=== PATIENT | female | born 1930 | race Caucasian/White ===

== ENCOUNTER 2017-01-09 14:38 | Emergency (ER) | payer OTHER ==
[~2017-01-09] VITALS: Ht 144.8 cm; Wt 65.0 kg
[~2017-01-09 14:38] MED LIST: ATEN1TAB73 PO; FURO1TAB93 PO; LEVO112T17 PO; SPIR25 PO; VERA240CR PO
[2017-01-09 14:40] VITALS: BP 172/72; PULSE 86; RESP 15; TEMP 97.8; O2SAT 97
--- NOTE | 2017-01-09 14:50 | PD ---
Physical Exam Date Seen by Provider: Jan 09, 2017 Time Seen by Provider: 14:47 Narrative 86 y/o female here with left wrist injury from trip and fall at home this am. Patient was going out to get paper and tripped. Patient denies other injury, or head or neck injury or pain. No other injury reported. No open wounds. She last ate last night. V/S stable Awaiting bed placement. Data Data Last Documented VS Vital Signs Date Time Temp Pulse Resp B/P Pulse Ox O2 Delivery O2 Flow Rate FiO2 01/09/17 14:40 97.8 86 15 172/72 97 MDM Medical Record Reviewed: Yes Supervised Visit with MARGOT: Yes Condition: Stable Olvin Cartagena Jan 09, 2017 14:50
--- NOTE | 2017-01-09 15:12 | RADRPT ---
EXAM DATE/TIME: 01/09/2017 14:57 [facility] COMPARISON: No previous studies available for comparison. INDICATIONS : Left wrist pain, fell MEDICAL HISTORY : Arthritis. SURGICAL HISTORY : None. ENCOUNTER: Initial ACUITY: 1 day PAIN SCORE: 4/10 LOCATION: Left Wrist FINDINGS: There is osteopenia with a complete fracture of distal radius with impaction of the metaphysis into t he epiphysisand dorsal displacement with slight angulation. Ulnar styloid fracture is also seen. Slig ht degenerative changes present within multiple joints. CONCLUSION: Distal radial fracture and ulnar styloid fracture. Rod Moctezuma MD on January 09, 2017 at 15:10 Board Certified Radiologist. This report was verified electronically.
[2017-01-09] MEDS ORDERED: ATEN25TA PO (15:43)
[2017-01-09] MEDS ORDERED: VERA1TAB17 PO (15:43)
[2017-01-09] MEDS ORDERED: LEVO112T29 PO (15:43)
--- NOTE | 2017-01-09 15:43 | PD ---
HPI Chief Complaint: Fall Time Seen by Provider: 15:43 Travel History International Travel<30 days: No Contact w/Intl Traveler<30days: No Traveled to known affect area: No History of Present Illness HPI 86-year-old female with history of hypertension and hypothyroid disease presents to the emergency department for evaluation of left wrist pain. Patient states that she was walking to get the newspaper from a neighbors when she tripped over her mood and fell landing on an outstretched left upper extremity. She did not strike her head or lose consciousness. She states that her left wrist was hurting her and she cannot pull herself up. She scooted herself into the kitchen to get a broom and then to the living room to get the phone. When she was able to get the phone she contacted a neighbor who came to help her. She states she became impatient with the neighbor who would not pick her up the way that she was requesting so they contacted [facility]. They were able to stay in the patient up in the patient came to emergency department for evaluation. Patient states she has absolutely no pain except for in her wrist and it is a 2 out of 10 at this time. She states she is able to move all of her fingers and denies any alterations in sensation. She has no other symptoms to report this time. PFSH Past Medical History Cancer: No Cardiovascular Problems: No Diabetes: No Glaucoma: No Hepatitis: No Hiatal Hernia: No Hypertension: Yes Thyroid Disease: Yes Tetanus Vaccination: < 5 Years ?: Not Past Surgical History Abdominal Surgery: No Cardiac Surgery: No Ear Surgery: No Endocrine Surgery: No Genitourinary Surgery: No Gynecologic Surgery: No Oral Surgery: No Pacemaker: No Thoracic Surgery: No Social History Alcohol Use: No Tobacco Use: No Substance Use: No Allergies-Medications (Allergen,Severity, Reaction): Coded Allergies: Beta Blockers (Verified Allergy, Severe, 01/09/17) CONFUSION. Uncoded Allergies: NKA (Allergy, Unknown, 05/21/03) NKDA (Allergy, Unknown, 05/21/03) Reported Meds & Prescriptions Reported Meds & Active Scripts Active Percocet (Oxycodone-Acetaminophen) 5-325 mg Tab 0.5-1 Tab PO Q6H PRN Reported Levoxyl (Levothyroxine Sodium) 112 Mcg Tab 112 Mcg PO DAILY Atenolol 25 Mg Tab 25 Mg PO DAILY Verapamil ER 24 HR (Verapamil HCl) 240 Mg Tab 240 Mg PO HS Review of Systems Except as stated in HPI: all other systems reviewed are Neg Physical Exam Narrative GENERAL: Well-nourished elderly female patient, in no acute distress SKIN: Focused skin assessment warm/dry. Ecchymosis on the anterior aspect of the left distal forearm. HEAD: Atraumatic. Normocephalic. EYES: Pupils equal and round. No scleral icterus. No injection or drainage. ENT: No nasal bleeding or discharge. Mucous membranes pink and moist. NECK: Trachea midline. No JVD. CARDIOVASCULAR: Regular rate and rhythm. No murmur appreciated. RESPIRATORY: No accessory muscle use. Clear to auscultation. Breath sounds equal bilaterally. GASTROINTESTINAL: Abdomen soft, non-tender, nondistended. Hepatic and splenic margins not palpable. MUSCULOSKELETAL: No obvious deformities. No clubbing. No cyanosis. There is swelling and tenderness of the left distal forearm and wrist. There is no obvious deformity. The skin is intact. Flexion and extension of the fingers is normal. The fingers are warm and well perfused. Sensation to light touch is intact in the hand. NEUROLOGICAL: Awake and alert. No obvious cranial nerve deficits. Motor grossly within normal limits. Normal speech. PSYCHIATRIC: Appropriate mood and affect; insight and judgment normal. Data Data Last Documented VS Vital Signs Date Time Temp Pulse Resp B/P Pulse Ox O2 Delivery O2 Flow Rate FiO2 01/09/17 14:40 97.8 86 15 172/72 97 Orders Wrist, Complete ([id number]) (01/09/17 14:50) Ice/Cold Pack (01/09/17 14:50) Splint Or Brace Apply/Monitor (01/09/17 15:42) Morphine Inj (Morphine Inj) (01/09/17 15:45) Ondansetron Inj (Zofran Inj) (01/09/17 16:00) Wrist, Limited (Ap&Lat) (01/09/17 ) Fiberglass Sugartong Sp Ad Arm (01/09/17 ) Sling Cradle Arm (01/09/17 ) MDM Medical Decision Making Medical Screen Exam Complete: Yes Emergency Medical Condition: Yes Medical Record Reviewed: Yes Differential Diagnosis Fracture versus sprain versus dislocation versus contusion Narrative Course 86-year-old female presents to the emergency department for evaluation left wrist pain. Patient has no other focal deficits or weakness. She is able to fully flex and extend both hips. There is no shortening or rotation. There is no tenderness to palpation over any of her bony structures except for the left wrist which is mildly swollen with ecchymosis on the anterior aspect. X-ray shows a distal radial fracture and ulnar styloid fracture. Mild angulation and displacement. Patient is placed in a splint to attempt to reduce the angulation is made but unsuccessful. Patient states that she is familiar with Dr. Blank who has repaired her right wrist in the past and needs to get home this evening. I discussed the patient with my attending physician Dr. Liu. Affected Extremity is neurovascularly intact. I explained to the patient that it will likely need surgical intervention sooner than later and to return immediately with any worsening of pain or alterations in sensation. She agrees that she'll contact Dr. Blank's office tomorrow and will return immediately with any acute worsening. He is counseled on care. She is provided pain control as needed. Diagnosis Primary Impression: Left wrist fracture Qualified Code: S62.102A - Left wrist fracture, closed, initial encounter Referrals: Maurice Blank MD Orthopaedic Surgeon Primary Care Physician Patient Instructions: General Instructions, Wrist Fracture in Adults (ED) Additional Instructions: Do not remove your splint Do not get it wet Ice and elevate to reduce pain and swelling Follow-up with a primary care provider Seek orthopedic evaluation. Call tomorrow to schedule an appointment as your fracture may require intervention for proper healing Use caution when taking narcotic pain medication. This may also cause her to be constipated so please use a stool softener if you choose to take it for pain control Return immediately with any acute worsening of symptoms Med/Other Pt SpecificInfo: Prescription(s) given Scripts Oxycodone-Acetaminophen (Percocet)5-325 mg Tab0.5-1 Tab PO Q6H PRN (PAIN GREATER THAN 6) #10 TAB Ref 0 Prov:Alisson Liu MD 01/09/17 Disposition: 01 DISCHARGE HOME Condition: Stable Zora WheelerP Jan 09, 2017 15:43
[2017-01-09] MEDS ORDERED: MORPHINE SULFATE 4 MG/ML INJ IV PUSH ONE (15:45)
[2017-01-09] MEDS ORDERED: ONDANSETRON HCL 4 MG/2 ML VIAL IV PUSH ONE (16:00)
[2017-01-09] MEDS ORDERED: PERC5TAB12 PO (16:30)
--- NOTE | 2017-01-09 16:59 | RADRPT ---
EXAM DATE/TIME: 01/09/2017 16:13 [facility] COMPARISON: WRIST LEFT COMPLETE ([id number]), January 09, 2017, 14:57. INDICATIONS : Post reduction of a left wrist fracture. MEDICAL HISTORY : Arthritis. SURGICAL HISTORY : None. ENCOUNTER: Subsequent ACUITY: 1 day PAIN SCORE: 0/10 LOCATION: Left wrist FINDINGS: Casting material obscures the bony detail and there is no change in distal radial and ulnar fractures . CONCLUSION: Placement of a cast, otherwise not changed. Rod Moctezuma MD on January 09, 2017 at 16:56 Board Certified Radiologist. This report was verified electronically.
== END 2017-01-09 17:00 | disposition home or self-care (01) ==
LOC: NEPE 14:38
DX: S52.502A Unspecified fracture of the lower end of left radius, initial encounter for closed fracture (principal); S52.612A Displaced fracture of left ulna styloid process, initial encounter for closed fracture; W01.0XXA Fall on same level from slipping, tripping and stumbling without subsequent striking against object, initial encounter; Y93.01 Activity, walking, marching and hiking; Y92.009 Unspecified place in unspecified non-institutional (private) residence as the place of occurrence of the external cause
CPT/HCPCS: 29125; 73100; 73110; 96374; 96375; 99284; J2270; J2405

== ENCOUNTER 2017-08-26 10:58 | Inpatient (IN) | payer OTHER, MEDICARE ==
[2017-08-26] VITALS (12 sets, daily range): BP systolic 68–144; BP diastolic 45–66; PULSE 64–86; RESP 16–30; TEMP 98–98.9; O2SAT 94–100
[~2017-08-26] VITALS: Ht 144.8 cm; Wt 67.6 kg
[~2017-08-26 10:58] MED LIST changes: -ATEN1TAB73 PO; +ATEN25TA PO; -FURO1TAB93 PO; -LEVO112T17 PO; +LEVO112T29 PO; +PERC5TAB12 PO; -SPIR25 PO; +VERA1TAB17 PO; -VERA240CR PO
[2017-08-26] MEDS ORDERED: LEVO88TA2 PO (11:16)
[2017-08-26] MEDS ORDERED: ASPI-516 CHEW (11:16)
[2017-08-26] MEDS ORDERED: LISI-515 PO (11:16)
[2017-08-26] MEDS ORDERED: ATEN25TA PO (11:16)
[2017-08-26] MEDS ORDERED: OXYB15TA PO (11:16)
[2017-08-26] MEDS ORDERED: SODIUM CHLORIDE 0.9% FLUSH 10 ML FLUSH IVF PRN (11:30)
[2017-08-26] MEDS ORDERED: SODIUM CHLORID 0.9% 500 ML INJ 500 ML IV ONE ×2 (11:30→12:30)
--- NOTE | 2017-08-26 11:54 | RADRPT ---
EXAM DATE/TIME: 08/26/2017 11:29 [facility] COMPARISON: No previous studies available for comparison. INDICATIONS : Chest pain MEDICAL HISTORY : Hypertension. SURGICAL HISTORY : None. ENCOUNTER: Initial ACUITY: 2 days PAIN SCORE: 2/10 LOCATION: Bilateral chest FINDINGS: A single view of the chest demonstrates the lungs to be symmetrically aerated without evidence of mas s, infiltrate or effusion. The heart size is upper limits of normal.. Osseous structures are intact . CONCLUSION: No acute disease. Bassem Jones MD on August 26, 2017 at 11:52 Board Certified Radiologist. This report was verified electronically.
[2017-08-26] MEDS ORDERED: SODIUM CHLOR 0.9% 1000 ML INJ 1,000 ML IV ONE (12:00)
[2017-08-26 12:04] LABS: AUTOMATED NEUTROPHIL # 8.5 TH/MM3 (1.8-7.7); BASOPHIL % 0.2 % (0.0-2.0); EOSINOPHIL % 0.1 % (0.0-4.0); HEMATOCRIT 39.5 % (35.0-46.0); HEMO FLAGS DIFF FINAL; LYMPH % 10.2 % (9.0-44.0); MEAN CELL VOLUME 93.2 FL (80.0-100.0); MEAN CORPUSCULAR HEMOGLOBIN 30.9 PG (27.0-34.0); MEAN CORPUSCULAR HGB CONC 33.2 % (32.0-36.0); MONO % 6.2 % (0.0-8.0); NEUT % 83.3 % (16.0-70.0); PLATELET COUNT 189 TH/MM3 (150-450); RED BLOOD COUNT 4.23 MIL/MM3 (4.00-5.30); RED CELL DISTRIBUTION WIDTH 13.5 % (11.6-17.2); WHITE BLOOD COUNT 10.2 TH/MM3 (4.0-11.0)
[2017-08-26 12:09] LABS: APTT (PATIENT) 22.5 SEC (24.3-30.1); INTERNATIONAL NORMALIZED RATIO 1.1 RATIO; PROTHROMBIN TIME - PATIENT 11.4 SEC (9.8-11.6)
[2017-08-26 12:21] LABS: ALT (GPT) 48 U/L (10-53); ANION GAP 11 MEQ/L (5-15); AST (GOT) 50 U/L (15-37); BICARBONATE 21.2 MEQ/L (21.0-32.0); BLOOD UREA NITROGEN 24 MG/DL (7-18); CHLORIDE 104 MEQ/L (98-107); GLOMERULAR FILTRATION RATE 34 ML/MIN (>89); POTASSIUM 4.9 MEQ/L (3.5-5.1); SODIUM (NA) 136 MEQ/L (136-145)
[2017-08-26 12:26] LABS: ALKALINE PHOSPHATASE 66 U/L (45-117); TOTAL BILIRUBIN ADULT 0.6 MG/DL (0.2-1.0)
[2017-08-26 12:29] LABS: CREATINE KINASE 97 U/L (26-192)
[2017-08-26] MEDS ORDERED: ASPIRIN 81 MG CHEW TAB CHEW ONE (12:45)
[2017-08-26] MEDS ORDERED: IODIXANOL 320 MG/ML 10 ML VIAL (for Rad CT) IVCONTRAST ONE (12:53)
--- NOTE | 2017-08-26 13:11 | RADRPT ---
EXAM DATE/TIME: 08/26/2017 12:34 [facility] COMPARISON: No previous studies available for comparison. INDICATIONS : Shortness of breath, generalized weakness. IV CONTRAST: 50 cc Visipaque (iodixanol) IV RADIATION DOSE: 7.58 CTDIvol (mGy) MEDICAL HISTORY : Hypertension. SURGICAL HISTORY : None. ENCOUNTER: Initial ACUITY: 1 day PAIN SCALE: 0/10 LOCATION: chest TECHNIQUE: Volumetric scanning of the chest was performed using a pulmonary embolism protocol MIP images were re constructed. Using automated exposure control and adjustment of the mA and/or kV according to patien t size, radiation dose was kept as low as reasonably achievable to obtain optimal diagnostic quality images. DICOM format image data is available electronically for review and comparison. Follow-up recommendations for detected pulmonary nodules are based at a minimum on nodule size and pa tient risk factors according to Fleischner Society Guidelines. FINDINGS: PULMONARY ARTERIES: Extensive bilateral pulmonary emboli are noted within the bilateral upper, bilateral lower and right middle lobe pulmonary artery branches. LUNGS: There is no consolidation or pneumothorax . Tiny noncalcified 7 mm nodule density is noted within the right lower lobe posterior laterally which is indeterminate. Nodular infiltrate and/or scarring is n oted within the posterior aspect of the left lower lobe. PLEURAE: There is no pleural thickening or pleural effusion. MEDIASTINUM: There is good visualization of the great vessels of the middle mediastinum. No evidence of mediastin al or hilar adenopathy/mass. The heart is enlarged. Coronary artery calcium changes are noted. MUSCULOSKELETAL: Degenerative changes and scoliosis of the thoracic spine are noted. MISCELLANEOUS: The visualized upper abdominal organs demonstrate no acute abnormality. CONCLUSION: 1. Extensive bilateral pulmonary emboli throughout all pulmonary artery branches. 2. Cardiomegaly and coronary artery calcifications. 3. 7 mm noncalcified nodule within the right lower lobe which is indeterminate. 4. Nodular infiltrate/scarring within the left posterior lower lobe. 5. Degenerative changes and scoliosis of the thoracic spine. Tyler Chiu MD on August 26, 2017 at 13:03 Board Certified Radiologist. This report was verified electronically.
[2017-08-26] MEDS ORDERED: HEPARIN-D5W 25,000 U/250 ML 250 ML IV PRN ×2 (13:15→17:45)
[2017-08-26] MEDS ORDERED: HEPARIN SODIUM - IV 10,000 UNITS/10 ML VIAL IV PUSH ONE (13:15)
--- NOTE | 2017-08-26 13:58 | PD ---
HPI Chief Complaint: Cardiac Complaint Time Seen by Provider: 11:14 Travel History International Travel<30 days: No Contact w/Intl Traveler<30days: No Traveled to known affect area: No History of Present Illness HPI Patient is an 86-year-old female comes in complaining of shortness of breath. She says this started suddenly yesterday while she was in the store and any sort of exertion causes her to feel very short of breath. She denies ever having any chest pain. She denies leg pain or swelling. She says she has overall been feeling well until yesterday. She denies fever or chills. She denies cough or cold. She says she just feels very tired. PFSH Past Medical History Cancer: No Cardiovascular Problems: No Diabetes: No Glaucoma: No Hepatitis: No Hiatal Hernia: No Hypertension: Yes Thyroid Disease: Yes Menopausal: Yes Past Surgical History Abdominal Surgery: No Cardiac Surgery: No Ear Surgery: No Endocrine Surgery: No Genitourinary Surgery: No Gynecologic Surgery: No Oral Surgery: No Pacemaker: No Thoracic Surgery: No Social History Alcohol Use: No Tobacco Use: No Substance Use: No Allergies-Medications (Allergen,Severity, Reaction): Coded Allergies: acebutolol (Unverified Allergy, Severe, 08/26/17) CONFUSION. atenolol (Unverified Allergy, Severe, 08/26/17) CONFUSION. betaxolol (Unverified Allergy, Severe, 08/26/17) CONFUSION. carvedilol (Unverified Allergy, Severe, 08/26/17) CONFUSION. labetalol (Unverified Allergy, Severe, 08/26/17) CONFUSION. metoprolol (Unverified Allergy, Severe, 08/26/17) CONFUSION. nebivolol (Unverified Allergy, Severe, 08/26/17) CONFUSION. pindolol (Unverified Allergy, Severe, 08/26/17) CONFUSION. propranolol (Unverified Allergy, Severe, 08/26/17) CONFUSION. sotalol (Unverified Allergy, Severe, 08/26/17) CONFUSION. timolol (Unverified Allergy, Severe, 08/26/17) CONFUSION. Uncoded Allergies: NKA (Allergy, Unknown, 05/21/03) NKDA (Allergy, Unknown, 05/21/03) Reported Meds & Prescriptions Reported Meds & Active Scripts Active Reported Aspirin 81 Mg Chew 81 Mg CHEW DAILY Levothyroxine (Levothyroxine Sodium) 88 Mcg Tab 88 Mcg PO DAILY Atenolol 25 Mg Tab 25 Mg PO DAILY Oxybutynin ER 24 HR (Oxybutynin Chloride) 15 Mg Tab 15 Mg PO DAILY Lisinopril 20 Mg Tab 20 Mg PO DAILY Review of Systems Except as stated in HPI: all other systems reviewed are Neg General / Constitutional: No: Fever, Chills Eyes: No: Blurred Vision HENT: No: Headaches Cardiovascular: No: Chest Pain or Discomfort Respiratory: Positive: Shortness of Breath Gastrointestinal: No: Nausea, Vomiting Musculoskeletal: No: Myalgias, Edema Skin: No Rash, No Change in Pigmentation Neurologic: Positive: Weakness, No: Dizziness Physical Exam Narrative GENERAL: Awake and alert, in no acute distress. SKIN: Focused skin assessment warm/dry. HEAD: Atraumatic. Normocephalic. EYES: Pupils equal and round. No scleral icterus. X ocular movements intact. ENT: Mucous membranes pink and moist. NECK: Trachea midline. No JVD. CARDIOVASCULAR: Regular rate and rhythm. No murmur appreciated. RESPIRATORY: No accessory muscle use. Clear to auscultation. Breath sounds equal bilaterally. GASTROINTESTINAL: Abdomen soft, non-tender, nondistended. MUSCULOSKELETAL: No obvious deformities. No clubbing. No cyanosis. No edema. NEUROLOGICAL: Awake and alert. No obvious cranial nerve deficits. Motor grossly within normal limits. Normal speech. PSYCHIATRIC: Appropriate mood and affect; insight and judgment normal. Data Data Last Documented VS Vital Signs Date Time Temp Pulse Resp B/P (MAP) Pulse Ox O2 Delivery O2 Flow Rate FiO2 08/26/17 13:27 67 18 123/60 (81) 97 08/26/17 11:59 Room Air 08/26/17 11:00 98.9 Orders Orders Complete Blood Count With Diff (08/26/17 11:24) Comprehensive Metabolic Panel (08/26/17 11:24) B-Type Natriuretic Peptide (08/26/17 11:24) Act Partial Throm Time (Ptt) (08/26/17 11:24) Prothrombin Time / Inr (Pt) (08/26/17 11:24) Ckmb (Isoenzyme) Profile (08/26/17 11:24) Troponin I (08/26/17 11:24) Urinalysis - C+S If Indicated (08/26/17 11:24) Iv Access Insert/Monitor (08/26/17 11:24) Ecg Monitoring (08/26/17 11:24) Oximetry (08/26/17 11:24) Oxygen Administration (08/26/17 11:24) Chest, Single Ap (08/26/17 11:24) Ct Pulmonary Angiogram (08/26/17 11:24) Sodium Chloride 0.9% Flush (Ns Flush) (08/26/17 11:30) Sodium Chlorid 0.9% 500 Ml Inj (Ns 500 M (08/26/17 11:30) Sodium Chlor 0.9% 1000 Ml Inj (Ns 1000 M (08/26/17 12:00) Sodium Chlorid 0.9% 500 Ml Inj (Ns 500 M (08/26/17 12:30) Aspirin Chew (Aspirin Chew) (08/26/17 12:45) Iodixanol 320 Inj (Rad Ct) (Visipaque 32 (08/26/17 12:53) Heparin Inj (Heparin Inj) (08/26/17 13:15) Heparin-D5w 25,000 U/250 Ml (Heparin-D5w (08/26/17 13:15) Electrocardiogram (08/26/17 11:15) Echo 2d Comp With Doppler (08/26/17 ) Admit Order (Ed Use Only) (08/26/17 ) Labs Laboratory Tests Test 08/26/17 11:42 White Blood Count 10.2 TH/MM3 Red Blood Count 4.23 MIL/MM3 Hemoglobin 13.1 GM/DL Hematocrit 39.5 % Mean Corpuscular Volume 93.2 FL Mean Corpuscular Hemoglobin 30.9 PG Mean Corpuscular Hemoglobin Concent 33.2 % Red Cell Distribution Width 13.5 % Platelet Count 189 TH/MM3 Mean Platelet Volume 8.8 FL Neutrophils (%) (Auto) 83.3 % Lymphocytes (%) (Auto) 10.2 % Monocytes (%) (Auto) 6.2 % Eosinophils (%) (Auto) 0.1 % Basophils (%) (Auto) 0.2 % Neutrophils # (Auto) 8.5 TH/MM3 Lymphocytes # (Auto) 1.0 TH/MM3 Monocytes # (Auto) 0.6 TH/MM3 Eosinophils # (Auto) 0.0 TH/MM3 Basophils # (Auto) 0.0 TH/MM3 CBC Comment DIFF FINAL Differential Comment Prothrombin Time 11.4 SEC Prothromb Time International Ratio 1.1 RATIO Activated Partial Thromboplast Time 22.5 SEC Blood Urea Nitrogen 24 MG/DL Creatinine 1.47 MG/DL Random Glucose 309 MG/DL Total Protein 7.2 GM/DL Albumin 3.5 GM/DL Calcium Level 10.9 MG/DL Alkaline Phosphatase 66 U/L Aspartate Amino Transf (AST/SGOT) 50 U/L Alanine Aminotransferase (ALT/SGPT) 48 U/L Total Bilirubin 0.6 MG/DL Sodium Level 136 MEQ/L Potassium Level 4.9 MEQ/L Chloride Level 104 MEQ/L Carbon Dioxide Level 21.2 MEQ/L Anion Gap 11 MEQ/L Estimat Glomerular Filtration Rate 34 ML/MIN Total Creatine Kinase 97 U/L Troponin I 1.64 NG/ML B-Type Natriuretic Peptide 441 PG/ML MDM Medical Decision Making Medical Screen Exam Complete: Yes Emergency Medical Condition: Yes Medical Record Reviewed: Yes Interpretation(s) ECG shows normal sinus rhythm at 75, no ST elevation or depression. Differential Diagnosis PE versus ACS versus pneumonia versus CHF Narrative Course Patient is an 86-year-old female comes in complaining of shortness of breath. Exam shows no abnormalities. Patient is hypotensive in the ED. She is given 2 L of normal saline. Rectal exam performed shows no evidence of bleeding. Patient taken for CTA to rule out PE. Labs show an elevated troponin to 1.64. CTA shows heavy clot burden in her pulmonary arteries. Patient was given aspirin, given heparin. Patient admitted to the ICU for further management. Critical Care Narrative Aggregate critical care time was 35 minutes. Time to perform other separately billable procedures was not included in the critical care time. My time did not include minutes spent treating any other patients simultaneously or on activities that did not directly contribute to the patient's treatment. The services I provided to this patient were to treat and/or prevent clinically significant deterioration that could result in: Serious illness or I provided critical care services requiring my management, as noted below: Chart data review, documentation time, medication orders and management, vital sign assessments/reviewing monitor data, ordering and reviewing lab tests, ordering and interpreting/reviewing x-rays and diagnostic studies, care of the patient and discussion of the patient with the admitting physicians. HemaPrompt Point of Care Internal Pos. & Neg. Controls: Passed Fecal Specimen Occult Blood: Negative Diagnosis Primary Impression: Acute massive pulmonary embolism Additional Impression: Hypotension Qualified Codes: I95.89 - Other hypotension Admitting Information Admitting Physician Requests: Admit Alisson Liu MD Aug 26, 2017 13:58
[2017-08-26] MEDS ORDERED: ALTEPLASE INJ 100 MG in WATER STERILE FOR INJ 100 ML IV ONE (14:30)
[2017-08-26] MEDS ORDERED: MISCELLANEOUS NURSING INFORMATION OTHER PRN (14:30)
[2017-08-26] MEDS: SODIUM CHLOR 0.9% 1000 ML INJ 1,000 ML IV SCH (14:31)
--- NOTE | 2017-08-26 14:36 | HHI.HP ---
[facility] Service Critical Care Medicine Primary Care Physician Carlos Pokl MD Admission Diagnosis PE, hypotension Diagnosis: (1) Acute massive pulmonary embolism Diagnosis: Principal (2) Urinary incontinence Diagnosis: Secondary (3) Hypertension Diagnosis: Secondary (4) Hypothyroidism Diagnosis: Secondary (5) Elevated troponin Diagnosis: Principal (6) Acute kidney injury Diagnosis: Principal (7) Hyperglycemia Diagnosis: Principal (8) Hypotension Diagnosis: Principal (9) History of TIA (transient ischemic attack) Diagnosis: Principal (10) Diabetes mellitus Diagnosis: Secondary Chief Complaint: Shortness of breath/generalized weakness Travel History International Travel<30 Days: No Contact w/Intl Traveler <30 Da: No Traveled to Known Affected Are: No History of Present Illness This is a 86-year-old female. Date of admission 08/26/2017. Past medical history includes hypertension, diet-controlled diabetes, hypothyroidism and urinary incontinence. This had bilateral wrist surgeries in the past. She presents to [facility] with several-day history increasing shortness of breath. Denies any chest pain or pressure with this. Positive for dyspnea exertion. Denies orthopnea. Denies any recent travel. She states she has a fairly active lifestyle and takes care of stray cats CT pulmonary revealed bilateral pulmonary embolism. Patient was released from heparin drip. Patient can hypotensive. Bedside to occur revealed right ventricular strain with bowing D interseptum. Discussed patient benefits risk of alteplase infusion with ongoing hypotension increasing dyspnea. This includes acute active internal bleeding/acute intracranial hemorrhage etc.. Will check CT brain prior to initiation of alteplase. She agreed knowing benefits and risks of procedure Dr. Jacobo as seen the patient from cardiology standpoint. EKG revealedno specific ST-T changes. Troponin was elevated 1.6. official echocardiogram pending. Bedside echo revealed RV straining Review of Systems Constitutional: COMPLAINS OF: Fatigue, Weight loss, DENIES: Fever, Weight gain Endocrine: DENIES: Heat/cold intolerance, Polydipsia Eyes: DENIES: Blurred vision, Diplopia Ears, nose, mouth, throat: DENIES: Tinnitus, Hearing loss Respiratory: COMPLAINS OF: Shortness of breath, DENIES: Apneas, Hemoptysis, Sputum production Cardiovascular: DENIES: Chest pain Gastrointestinal: DENIES: Abdominal pain, Nausea, Vomiting Genitourinary: COMPLAINS OF: Urinary frequency, Urinary incontinence Musculoskeletal: DENIES: Joint pain Integumentary: DENIES: Abnormal pigmentation Hematologic/lymphatic: DENIES: Bruising Immunologic/allergic: DENIES: Eczema Neurologic: DENIES: Abnormal gait Psychiatric: COMPLAINS OF: Anxiety, DENIES: Confusion, Depression Past Family Social History Allergies: Coded Allergies: acebutolol (Unverified Allergy, Severe, 08/26/17) CONFUSION. atenolol (Unverified Allergy, Severe, 08/26/17) CONFUSION. betaxolol (Unverified Allergy, Severe, 08/26/17) CONFUSION. carvedilol (Unverified Allergy, Severe, 08/26/17) CONFUSION. labetalol (Unverified Allergy, Severe, 08/26/17) CONFUSION. metoprolol (Unverified Allergy, Severe, 08/26/17) CONFUSION. nebivolol (Unverified Allergy, Severe, 08/26/17) CONFUSION. pindolol (Unverified Allergy, Severe, 08/26/17) CONFUSION. propranolol (Unverified Allergy, Severe, 08/26/17) CONFUSION. sotalol (Unverified Allergy, Severe, 08/26/17) CONFUSION. timolol (Unverified Allergy, Severe, 08/26/17) CONFUSION. Uncoded Allergies: NKA (Allergy, Unknown, 05/21/03) NKDA (Allergy, Unknown, 05/21/03) Past Medical History Hypertension Hypothyroidism Urinary incontinence Diet-controlled diabetes History of TIA in Past Surgical History Bilateral wrists repair [place] teeth extraction Cataract Reported Medications Aspirin 81 Mg Chew 81 Mg CHEW DAILY Levothyroxine (Levothyroxine Sodium) 88 Mcg Tab 88 Mcg PO DAILY Atenolol 25 Mg Tab 25 Mg PO DAILY Oxybutynin ER 24 HR (Oxybutynin Chloride) 15 Mg Tab 15 Mg PO DAILY Lisinopril 20 Mg Tab 20 Mg PO DAILY Active Ordered Medications Reviewed in EMR Family History Patient is placed in foster care at age 10. Does not know family history. Social History Quit tobacco in 1979. Approximately one half pack per day 30 years. Denies alcohol or illicit drug use Physical Exam Vital Signs Vital Signs Date Time Temp Pulse Resp B/P (MAP) Pulse Ox O2 Delivery O2 Flow Rate FiO2 08/26/17 14:16 69 125/63 (83) 08/26/17 13:27 67 18 123/60 (81) 97 08/26/17 11:59 65 25 68/46 (53) 94 Room Air 69/45 (53) 08/26/17 11:49 98 Room Air 08/26/17 11:49 (77) Room Air 08/26/17 11:11 74 20 96 Room Air 08/26/17 11:00 98.9 86 16 113/59 (77) 95 Physical Exam GENERAL: This is a 86-year-old female resting in bed in mild Mr. distress SKIN: Warm and dry. HEAD: Atraumatic. Normocephalic. EYES: Pupils equal and round about 2 mm bilaterally and reactive. No scleral icterus. No injection or drainage. ENT: No nasal bleeding or discharge. Mucous membranes pink and moist. NECK: Trachea midline. No JVD. CARDIOVASCULAR: Regular rate and rhythm. S1, S2 no S4 without murmur RESPIRATORY: No accessory muscle use. Clear to auscultation. Breath sounds equal bilaterally. GASTROINTESTINAL: Abdomen soft, non-tender, nondistended. Hepatic and splenic margins not palpable. MUSCULOSKELETAL: Extremities without significant peripheral edema. No obvious deformities. NEUROLOGICAL: Awake and alert. No obvious cranial nerve deficits. Motor grossly within normal limits. Five out of 5 muscle strength in the arms and legs. Normal speech. PSYCHIATRIC: Appropriate mood and affect; insight and judgment normal. Laboratory Laboratory Tests Test 08/26/17 11:42 White Blood Count 10.2 Red Blood Count 4.23 Hemoglobin 13.1 Hematocrit 39.5 Mean Corpuscular Volume 93.2 Mean Corpuscular Hemoglobin 30.9 Mean Corpuscular Hemoglobin Concent 33.2 Red Cell Distribution Width 13.5 Platelet Count 189 Mean Platelet Volume 8.8 Neutrophils (%) (Auto) 83.3 Lymphocytes (%) (Auto) 10.2 Monocytes (%) (Auto) 6.2 Eosinophils (%) (Auto) 0.1 Basophils (%) (Auto) 0.2 Neutrophils # (Auto) 8.5 Lymphocytes # (Auto) 1.0 Monocytes # (Auto) 0.6 Eosinophils # (Auto) 0.0 Basophils # (Auto) 0.0 CBC Comment DIFF FINAL Differential Comment Prothrombin Time 11.4 Prothromb Time International Ratio 1.1 Activated Partial Thromboplast Time 22.5 Blood Urea Nitrogen 24 Creatinine 1.47 Random Glucose 309 Total Protein 7.2 Albumin 3.5 Calcium Level 10.9 Alkaline Phosphatase 66 Aspartate Amino Transf (AST/SGOT) 50 Alanine Aminotransferase (ALT/SGPT) 48 Total Bilirubin 0.6 Sodium Level 136 Potassium Level 4.9 Chloride Level 104 Carbon Dioxide Level 21.2 Anion Gap 11 Estimat Glomerular Filtration Rate 34 Total Creatine Kinase 97 Troponin I 1.64 B-Type Natriuretic Peptide 441 Result Diagram: 08/26/17 1142 08/26/17 1142 Imaging Last Impressions Chest X-Ray 08/26/17 1124 Signed Impressions: Service Date/Time: Saturday, August 26, 2017 11:29 - CONCLUSION: No acute disease. Bassem Jones MD CT Angiography 08/26/17 1124 Signed Impressions: Service Date/Time: Saturday, August 26, 2017 12:34 - CONCLUSION: 1. Extensive bilateral pulmonary emboli throughout all pulmonary artery branches. 2. Cardiomegaly and coronary artery calcifications. 3. 7 mm noncalcified nodule within the right lower lobe which is indeterminate. 4. Nodular infiltrate/scarring within the left posterior lower lobe. 5. Degenerative changes and scoliosis of the thoracic spine. Tyler Chiu MD Septic Shock Reassessment Septic shock perfusion: reassessment completed Caprini VTE Risk Assessment Caprini VTE Risk Assessment: Mod/High Risk (score >= 2) Caprini Risk Assessment Model Point Value = 1 Point Value = 2 Point Value = 3 Point Value = 5 Age 41-60 Minor surgery BMI > 25 kg/m2 Swollen legs Varicose veins or History of unexplained or recurrent spontaneous Oral contraceptives or hormone replacement Sepsis (< 1 month) Serious lung disease, including pneumonia (< 1 month) Abnormal pulmonary function Acute myocardial infarction Congestive heart failure (< 1 month) History of inflammatory bowel disease Medical patient at bed rest Age 61-74 Arthroscopic surgery Major open surgery (> 45 min) Laparoscopic surgery (> 45 min) Malignancy Confined to bed (> 72 hours) Immobilizing plaster cast Central venous access Age >= 75 History of VTE Family history of VTE Factor V Leiden Prothrombin [id number] Lupus anticoagulant Anticardiolipin antibodies Elevated serum homocysteine Heparin-induced thrombocytopenia Other congenital or acquired thrombophilia Stroke (< 1 month) Elective arthroplasty Hip, pelvis, or leg fracture Acute spinal cord injury (< 1 month) Prophylaxis Regimen Total Risk Factor Score Risk Level Prophylaxis Regimen 0-1 Low Early ambulation 2 Moderate Order ONE of the following: *Sequential Compression Device (SCD) *Heparin 5000 units SQ BID 3-4 Higher Order ONE of the following medications: *Heparin 5000 units SQ TID *Enoxaparin/Lovenox 40 mg SQ daily (WT < 150 kg, CrCl > 30 mL/min) *Enoxaparin/Lovenox 30 mg SQ daily (WT < 150 kg, CrCl > 10-29 mL/min) *Enoxaparin/Lovenox 30 mg SQ BID (WT < 150 kg, CrCl > 30 mL/min) AND/OR *Sequential Compression Device (SCD) 5 or more Highest Order ONE of the following medications: *Heparin 5000 units SQ TID (Preferred with Epidurals) *Enoxaparin/Lovenox 40 mg SQ daily (WT < 150 kg, CrCl > 30 mL/min) *Enoxaparin/Lovenox 30 mg SQ daily (WT < 150 kg, CrCl > 10-29 mL/min) *Enoxaparin/Lovenox 30 mg SQ BID (WT < 150 kg, CrCl > 30 mL/min) AND *Sequential Compression Device (SCD) Assessment and Plan Assessment and Plan Neuro/Psych: History of TIA 1990s Acetaminophen as needed for fever Hydrocodone/acetaminophen and morphine sulfate for pain management CT brain prior to initiation of alteplase CV: Elevated troponin Obstructive shock secondary to pulmonary embolism History of hypertension EKG revealed no significant ST-T changes. Cycle troponins every [address] Jacobo - cardiology is evaluating Holding daily medication atenolol 25 mg daily lisinopril 20 mg daily light of hypotension Holding aspirin 81 mg daily after alteplase Bedside echo revealed intraseptal D bowling and RV strain. Formal 2-D echocardiogram pending Resp: Massive pulmonary embolism/acute CT pulmonary revealed bilateral pulmonary embolism Patient is currently motion of breath episode of hypotension transiently improved with IV fluids Discuss with patient's benefit versus risk of alteplase infusion. Risks include bleeding both internal and intracerebral hemorrhage. Greater than 6% chance of bleeding with initiation of alteplase. She is aware the risks and wishes to proceed. GI: Patient is currently nothing by mouth IV pantoprazole for GI prophylaxis Docusate sodium/senna 1 tablet twice a day for bowel regimen : Urinary incontinence Continue oxybutynin 50 mill grams daily Rogers catheter for accurate I's and O's in a critically ill patient Endo: Diet-controlled diabetes mellitus Accu-Cheks before meals/at bedtime with Novulin R to maintain euglycemia/low regimen Check TSH. Continue Levoxyl 88 g daily Renal: Acute kidney injury Creatinine is currently 1.47. Check urine electrolytes and eosinophils Currently on normal saline at 84 cc an hour Monitor urine output Accurate I's and O's Heme: CBC within normal limits Monitor daily. Coags within normal limits as well ID: Monitor for infection MSK: PT evaluate and treat. Currently on bedrest status post alteplase FEN: Replace electrolytes is clinically indicated Access - Utilize peripheral IV. Central line if indicated Prophylaxis - GI - pantoprazole - DVT - SCD/pharmacological prophylaxis held status post alteplase Critical Care: The total critical care time was 35 minutes. Time to perform other separately billable procedures was not included in the critical care time. Code Status Full code Discussed Condition With Dr. Hameed/ED physician. Patient. Care plan discussed and all questions answered. Problem Qualifiers (1) Urinary incontinence: Qualified Codes: R32 - Unspecified urinary incontinence (2) Hypertension: Qualified Codes: I10 - Essential (primary) hypertension (3) Hypothyroidism: Qualified Codes: E03.9 - Hypothyroidism, unspecified (4) Hypotension: Qualified Codes: I95.89 - Other hypotension (5) Diabetes mellitus: Qualified Codes: E11.8 - Type 2 diabetes mellitus with unspecified complications Michael Mancuso MD Aug 26, 2017 14:36
[2017-08-26] MEDS ORDERED: RESP: ALBUTEROL 2.5 MG/3 ML NEB (PRN) INH (14:45)
[2017-08-26] MEDS ORDERED: CHLORHEXIDINE GLUCONATE 2 % 1 PACK (2 CLOTHS) TOP PRN (14:45)
[2017-08-26] MEDS ORDERED: BISACODYL 10 MG SUPP RECTAL PRN (14:45)
[2017-08-26] MEDS ORDERED: MORPHINE SULFATE 4 MG/ML INJ IV PUSH PRN ×2 (14:45→16:30)
[2017-08-26] MEDS ORDERED: MISCELLANEOUS NURSING INFORMATION XX SCH (14:45)
[2017-08-26] MEDS ORDERED: MAGNESIUM HYDROXIDE SUSP 30 ML CUP PO PRN (14:45)
[2017-08-26] MEDS ORDERED: ACETAMINOPHEN 325 MG TAB PO PRN (14:45)
[2017-08-26] MEDS ORDERED: ACETAMINOPHEN/HYDROcodone 325 MG/5 MG TAB PO PRN (14:45)
[2017-08-26] MEDS ORDERED: SENNOSIDES 8.6 MG TAB PO PRN (14:45)
[2017-08-26] MEDS ORDERED: ONDANSETRON HCL 4 MG/2 ML VIAL IV PUSH PRN (14:45)
[2017-08-26] MEDS ORDERED: LACTULOSE SYRUP 20 GM/30 ML CUP PO PRN (14:45)
--- NOTE | 2017-08-26 14:52 | MB ---
cc: CULLEN STOVALL M.D. DATE OF CONSULTATION 08/26/2017 REASON FOR CONSULTATION Abnormal troponin level. HISTORY OF PRESENT ILLNESS The patient is an 86-year-old white female with a history of hypertension, diet-controlled diabetes, transient ischemic attack in the , who presented to the hospital mainly with complaints of shortness of breath. She is vague as to the duration of her symptoms but states they have been going on for "a long time." Troponin level was checked here in the hospital and found to be abnormal. The patient denies any chest pains, dizziness, syncope, near-syncope. For at least the last few months she has had mild left pedal edema. Rarely she experiences brief fluttering palpitations. She denies paroxysmal nocturnal dyspnea, orthopnea, fevers, cough, hemoptysis. PAST MEDICAL HISTORY 1. Hypertension. 2. Diet-controlled diabetes. 3. Transient ischemic attack in the . 4. Hypothyroidism. PAST SURGICAL HISTORY Cataract surgery. MEDICATIONS Cardiac medications at home: 1. Aspirin 81 mg q. daily. 2. Tenormin 25 mg q. daily. 3. Lisinopril 20 mg q. daily. ALLERGIES BETA BLOCKERS. FAMILY HISTORY Noncontributory. SOCIAL HISTORY The patient denies alcohol abuse. She quit smoking in 1979. REVIEW OF SYSTEMS As in the history of present illness, otherwise negative or noncontributory. She also currently denies headache, visual changes, abdominal pain, melena, dyspepsia, bright red blood per rectum. PHYSICAL EXAMINATION VITAL SIGNS: On physical examination her blood pressure is 123/60 with a pulse of 67, respirations 18. GENERAL: In general she is a well-developed, well-nourished white female in no acute distress. HEENT/NECK: Jugular venous pressure is normal. Carotid pulses are 2+ bilaterally and without bruits. CHEST: Examination of the chest reveals clear lung kay. CARDIAC: On cardiac examination she has a regular rhythm and rate without S3, S4 or murmur. ABDOMEN: On abdominal examination she has a soft, nontender abdomen. Bowel sounds are present. There is no definite hepatosplenomegaly. EXTREMITIES: Examination of the extremities reveals no clubbing or cyanosis. There is trace to 1+ left pretibial edema. LABORATORY Laboratory data includes troponin 1.64, AST 50, ALT 48, BUN 24, creatinine 1.47, potassium 4.9, WBC 10.2, hemoglobin 13.1, platelets 189, INR 1.1. IMAGING Chest x-ray shows no acute disease. EKG I am unable to locate the EKG; reportedly it shows no acute ST-segment or T-wave changes. IMPRESSION Bilateral extensive pulmonary emboli, transient hypotension in this 86-year-old white female with a history of hypertension, diet-controlled diabetes, transient ischemic attack and hypothyroidism. I have been asked to see the patient for an abnormal troponin level. Overall I doubt the abnormal troponin level is due to acute coronary syndrome. It may be due to the acute pulmonary embolism. With administration of intravenous fluids she is now normotensive. Reportedly EKG shows no acute ST-segment or T-wave changes. She denies any chest pain symptoms. RECOMMENDATIONS 1. Anticoagulation therapy for her pulmonary emboli. 2. Await her 2-D echo. 3. Will follow-up as needed for any abnormalities seen on echocardiography. MD CHEL Dickson/ABEBE /1:54 PM /2:25 PM [id number]
[2017-08-26] MEDS ORDERED: GLUCAGON 1 MG/ML VIAL OTHER PRN (15:00)
[2017-08-26] MEDS ORDERED: DEXTROSE 50% IN WATER 50 ML VIAL(D50) IV PUSH PRN (15:00)
--- NOTE | 2017-08-26 15:24 | RADRPT ---
EXAM DATE/TIME: 08/26/2017 15:09 [facility] COMPARISON: No previous studies available for comparison. INDICATIONS : Generalized weakness. RADIATION DOSE: 30.32 CTDIvol (mGy) MEDICAL HISTORY : Hypertension. SURGICAL HISTORY : None. ENCOUNTER: Initial ACUITY: 1 day PAIN SCALE: 0/10 LOCATION: cranial TECHNIQUE: Multiple contiguous axial images were obtained of the head. Using automated exposure control and adj ustment of the mA and/or kV according to patient size, radiation dose was kept as low as reasonably a chievable to obtain optimal diagnostic quality images. DICOM format image data is available electro nically for review and comparison. FINDINGS: CEREBRUM: The ventricles are normal for age. Bilateral cortical atrophy and chronic white matter changes. No e vidence of midline shift, mass lesion, hemorrhage or acute infarction. No extra-axial fluid collecti ons are seen. POSTERIOR FOSSA: The cerebellum and brainstem are intact. The 4th ventricle is midline. The cerebellopontine angle i s unremarkable. EXTRACRANIAL: The visualized portion of the orbits is intact. SKULL: The calvaria is intact. No evidence of skull fracture. CONCLUSION: 1. No acute intracranial hemorrhage. 2. Bilateral cortical atrophy and chronic white matter changes. Bassem Jones MD on August 26, 2017 at 15:21 Board Certified Radiologist. This report was verified electronically.
[2017-08-26 15:47] LABS: BLOOD, URINE TRACE (NEG); COMMENT (UR) CULT NOT INDICATED; CULTURE IF INDICATED CULT NOT INDICATED; GLUCOSE,URINE NEG (NEG); HYALINE CAST, URINE 4 /lpf (RARE); KETONE, URINE NEG (NEG); MUCUS URINE FEW /lpf (OCC); NITRITE,URINE NEG (NEG); PH, URINE 5.5 (5.0-8.5); SQUAMOUS EPITHELIAL CELL URINE 2 /hpf (0-5); URINE COLOR DARK-YELLOW (YELLW/STRAW)
[2017-08-26] MEDS: RESP: ALBUTEROL 2.5 MG/IPRATROPIUM 0.5 MG NEB (SCH) INH ×2 (15:49→19:31)
[2017-08-26] MEDS ORDERED: MORPHINE SULFATE 2 MG/ML INJ IV PUSH PRN (16:30)
[2017-08-26] MEDS: INSULIN NovoLIN REGULAR SUPPLEMENTAL SCALE SQ SCH ×2 (16:46→21:00)
--- NOTE | 2017-08-26 19:26 | RADRPT ---
EXAM DATE/TIME: 08/26/2017 17:56 [facility] COMPARISON: No previous studies available for comparison. INDICATIONS : Bilateral lower extremity edema. Pulmonary embolism. MEDICAL HISTORY : Hypertension. Hyperthyroidism. Diabetes. SURGICAL HISTORY : None. ENCOUNTER: Initial ACUITY: 1 day PAIN SCORE: 2/10 LOCATION: Bilateral legs. TECHNIQUE: Venous ultrasound of the left and right leg was performed from the inguinal ligament to the proximal calf. Real-time, color Doppler and spectral tracing, compression and augmentation techniques were us ed. FINDINGS: RIGHT LEG: Positive for nonocclusive thrombus in the right anterior tibial vein. Remainder the right extremity v eins are patent. LEFT LEG: Positive for occlusive thrombus in the left posterior tibial vein. No collection remains patent. CONCLUSION: 1. Small amount of infrapopliteal thrombus in the tibial veins as above. No deep venous thrombosis ab ove the knee. Edward Gibbs MD on August 26, 2017 at 19:23 Board Certified Radiologist. This report was verified electronically.
[2017-08-26 19:28] LABS: APTT (PATIENT) 34.1 SEC (24.3-30.1)
[2017-08-26] MEDS: SODIUM CHLORIDE 0.9% FLUSH 10 ML FLUSH IV FLUSH SCH (21:00)
[2017-08-26] MEDS: DOCUSATE SODIUM 50 MG/SENNA 8.6 MG TAB PO SCH (21:00)
[2017-08-26] MEDS: CHLORHEXIDINE GLUCONATE 2 % 1 PACK (2 CLOTHS) TOP SCH (23:30)
[2017-08-27] VITALS (29 sets, daily range): BP systolic 131–231; BP diastolic 59–94; PULSE 61–89; RESP 10–35; TEMP 98–98.3; O2SAT 89–100
[2017-08-27 01:40] LABS: APTT (PATIENT) 38.3 SEC (24.3-30.1)
[2017-08-27] MEDS: SODIUM CHLOR 0.9% 1000 ML INJ 1,000 ML IV SCH ×2 (01:54→14:21)
[2017-08-27] MEDS: RESP: ALBUTEROL 2.5 MG/IPRATROPIUM 0.5 MG NEB (SCH) INH ×4 (03:15→20:29)
[2017-08-27 04:35] LABS: AUTOMATED NEUTROPHIL # 6.9 TH/MM3 (1.8-7.7); BASOPHIL % 0.3 % (0.0-2.0); EOSINOPHIL # 0.1 TH/MM3 (0-0.4); EOSINOPHIL % 0.6 % (0.0-4.0); HEMATOCRIT 35.6 % (35.0-46.0); HEMO FLAGS DIFF FINAL; LYMPHOCYTE # 1.8 TH/MM3 (1.0-4.8); MEAN CELL VOLUME 93.2 FL (80.0-100.0); MEAN CORPUSCULAR HEMOGLOBIN 30.6 PG (27.0-34.0); MEAN CORPUSCULAR HGB CONC 32.8 % (32.0-36.0); MONO % 8.1 % (0.0-8.0); PLATELET COUNT 146 TH/MM3 (150-450); RED BLOOD COUNT 3.82 MIL/MM3 (4.00-5.30); RED CELL DISTRIBUTION WIDTH 13.4 % (11.6-17.2); WHITE BLOOD COUNT 9.6 TH/MM3 (4.0-11.0)
[2017-08-27 04:54] LABS: APTT (PATIENT) 40.1 SEC (24.3-30.1); INTERNATIONAL NORMALIZED RATIO 1.3 RATIO; PROTHROMBIN TIME - PATIENT 13.4 SEC (9.8-11.6)
[2017-08-27 04:57] LABS: ANION GAP 7 MEQ/L (5-15); AST (GOT) 52 U/L (15-37); BICARBONATE 21.9 MEQ/L (21.0-32.0); BLOOD UREA NITROGEN 26 MG/DL (7-18); CHLORIDE 114 MEQ/L (98-107); GLOMERULAR FILTRATION RATE 55 ML/MIN (>89); MAGNESIUM 1.5 MG/DL (1.5-2.5); POTASSIUM 4.1 MEQ/L (3.5-5.1); SODIUM (NA) 143 MEQ/L (136-145)
[2017-08-27 05:00] LABS: ALKALINE PHOSPHATASE 55 U/L (45-117); ALT (GPT) 52 U/L (10-53); TOTAL BILIRUBIN ADULT 0.6 MG/DL (0.2-1.0)
[2017-08-27] MEDS ORDERED: NITROGLYCERIN 2% OINT 1 GM PACKET TOPICAL PRN (07:00)
[2017-08-27] MEDS: hydrALAZINE HCL 20 MG/ML VIAL IV PUSH PRN (07:09)
--- NOTE | 2017-08-27 07:12 | HHI.CCPN ---
Subjective Remarks/Hospital Course This is a 86-year-old female. Date of admission 08/26/2017. Past medical history includes hypertension, diet-controlled diabetes, hypothyroidism and urinary incontinence. This had bilateral wrist surgeries in the past. She presents to [facility] with several-day history increasing shortness of breath. Denies any chest pain or pressure with this. Positive for dyspnea exertion. Denies orthopnea. Denies any recent travel. She states she has a fairly active lifestyle and takes care of stray cats CT pulmonary revealed bilateral pulmonary embolism. Patient was released from heparin drip. Patient can hypotensive. Bedside to occur revealed right ventricular strain with bowing D interseptum. Discussed patient benefits risk of alteplase infusion with ongoing hypotension increasing dyspnea. This includes acute active internal bleeding/acute intracranial hemorrhage etc.. Will check CT brain prior to initiation of alteplase. She agreed knowing benefits and risks of procedure Dr. Jacobo as seen the patient from cardiology standpoint. EKG revealedno specific ST-T changes. Troponin was elevated 1.6. official echocardiogram pending. Bedside echo revealed RV straining Subjective 08/27: Status post alteplase infusion 50 mg. Resuming home antihypertensives. Neurologically intact. Will check CT brain later this afternoon. Otherwise, denies chest pain or shortness of breath. Objective Vital Signs Date Time Temp Pulse Resp B/P (MAP) Pulse Ox O2 Delivery O2 Flow Rate FiO2 08/27/17 06:00 73 08/27/17 04:00 98.3 21 160/91 (114) 99 08/26/17 11:59 Room Air Intake and Output 08/27/17 08/27/17 08/27/17 07:59 15:59 23:59 Intake Total 1100 ml Output Total 550 ml Balance 550 ml Result Diagram: 08/27/17 0416 08/27/17 0416 Imaging Last Impressions Head CT 08/26/17 1434 Signed Impressions: Service Date/Time: Saturday, August 26, 2017 15:09 - CONCLUSION: 1. No acute intracranial hemorrhage. 2. Bilateral cortical atrophy and chronic white matter changes. Bassem Jones MD Chest X-Ray 08/26/17 1124 Signed Impressions: Service Date/Time: Saturday, August 26, 2017 11:29 - CONCLUSION: No acute disease. Bassem Jones MD CT Angiography 08/26/17 1124 Signed Impressions: Service Date/Time: Saturday, August 26, 2017 12:34 - CONCLUSION: 1. Extensive bilateral pulmonary emboli throughout all pulmonary artery branches. 2. Cardiomegaly and coronary artery calcifications. 3. 7 mm noncalcified nodule within the right lower lobe which is indeterminate. 4. Nodular infiltrate/scarring within the left posterior lower lobe. 5. Degenerative changes and scoliosis of the thoracic spine. Tyler Chiu MD Lower Extremity Ultrasound 08/26/17 0000 Signed Impressions: Service Date/Time: Saturday, August 26, 2017 17:56 - CONCLUSION: 1. Small amount of infrapopliteal thrombus in the tibial veins as above. No deep venous thrombosis above the knee. Edward Gibbs MD Objective Remarks GENERAL: This is a 86-year-old female resting in bed in no acute respiratory distress SKIN: Warm and dry. HEAD: Atraumatic. Normocephalic. EYES: Pupils equal and round about 2 mm bilaterally and reactive. No scleral icterus. No injection or drainage. ENT: No nasal bleeding or discharge. Mucous membranes pink and moist. NECK: Trachea midline. No JVD. CARDIOVASCULAR: Regular rate and rhythm. S1, S2 no S4 without murmur RESPIRATORY: No accessory muscle use. Clear to auscultation. Breath sounds equal bilaterally. GASTROINTESTINAL: Abdomen soft, non-tender, nondistended. Hepatic and splenic margins not palpable. MUSCULOSKELETAL: Extremities without significant peripheral edema. No obvious deformities. NEUROLOGICAL: Awake and alert. No obvious cranial nerve deficits. Motor grossly within normal limits. Five out of 5 muscle strength in the arms and legs. Normal speech. PSYCHIATRIC: Appropriate mood and affect; insight and judgment normal. A/P Assessment and Plan Neuro/Psych: History of TIA 1990s Acetaminophen as needed for fever Hydrocodone/acetaminophen and morphine sulfate for pain management CT brain prior to initiation of alteplase CV: Elevated troponin Obstructive shock secondary to pulmonary embolism History of hypertension EKG revealed no significant ST-T changes. Cycle troponins every 6 hours 2. Downward trending Dr. Jacobo - cardiology is evaluating Resuming daily medication atenolol 25 mg daily lisinopril 20 mg daily light of hypotension Holding aspirin 81 mg daily after alteplase Bedside echo revealed intraseptal D bowling and RV strain. Formal 2-D echocardiogram pending Resp: Massive pulmonary embolism/acute CT pulmonary revealed bilateral pulmonary embolism Patient is currently motion of breath episode of hypotension transiently improved with IV fluids Discuss with patient's benefit versus risk of alteplase infusion. Risks include bleeding both internal and intracerebral hemorrhage. Greater than 6% chance of bleeding with initiation of alteplase. She is aware the risks and wishes to proceed. She received 50 mg alteplase is currently on heparin drip see orders GI: Patient is currently nothing by mouth. Advance diet as tolerated today IV pantoprazole for GI prophylaxis Docusate sodium/senna 1 tablet twice a day for bowel regimen : Urinary incontinence Continue oxybutynin 15 mill grams daily Rogers catheter for accurate I's and O's in a critically ill patient Endo: Diet-controlled diabetes mellitus Accu-Cheks before meals/at bedtime with Novulin R to maintain euglycemia/low regimen Check TSH. - Elevated 3.9. Recommend recheck in 3-6 weeks. Continue current levothyroxine 88 g daily Renal: Acute kidney injury - resolving Creatinine is currently 1.1 Check urine electrolytes and eosinophils Currently on normal saline at 84 cc an hour Monitor urine output Accurate I's and O's Heme: Thrombocytopenia Right AT nonocclusive/left PT occlusive DVT Monitor daily. Coags within normal limits as well ID: Monitor for infection MSK: PT evaluate and treat. Currently on bedrest status post alteplase FEN: Replace electrolytes is clinically indicated Access - Utilize peripheral IV. Central line if indicated Prophylaxis - GI - pantoprazole - DVT - SCD/heparin drip Critical Care: Level II follow-up Michael Mancuso MD Aug 27, 2017 07:12
[2017-08-27] MEDS: INSULIN NovoLIN REGULAR SUPPLEMENTAL SCALE SQ SCH ×4 (08:00→21:00)
[2017-08-27] MEDS: DOCUSATE SODIUM 50 MG/SENNA 8.6 MG TAB PO SCH ×2 (08:52→22:11)
[2017-08-27] MEDS: PANTOPRAZOLE SODIUM 40 MG VIAL IV PUSH SCH (08:52)
[2017-08-27] MEDS: ATENOLOL 25 MG TAB PO SCH (08:52)
[2017-08-27] MEDS: LISINOPRIL 20 MG TAB PO SCH (08:52)
[2017-08-27] MEDS: TOLTERODINE TARTRATE 4 MG CAP LA PO SCH (08:52)
[2017-08-27] MEDS: SODIUM CHLORIDE 0.9% FLUSH 10 ML FLUSH IV FLUSH SCH ×2 (08:53→21:00)
[2017-08-27] MEDS: LEVOTHYROXINE SODIUM 88 MCG TAB PO SCH (09:00)
--- NOTE | 2017-08-27 09:26 | EKG ---
Date Performed: 08/26/2017 Time Performed: 11:15:53 PTAGE: 86 years EKG: Sinus rhythm WITH MARKED SINUS ARRHYTHMIA SEPTAL MYOCARDIAL INFARCTION ABNORMAL ECG NO PREVIOUS TRACING DOCTOR: Laura Jo Interpretating Date/Time 08/27/2017 09:25:20
[2017-08-27 10:49] LABS: HEMOGLOBIN A1a 1.9 %; HEMOGLOBIN A1b 1.9 %; HEMOGLOBIN Ao 84.9 %; HEMOGLOBIN P3 3.9 %
[2017-08-27 14:39] LABS: APTT (PATIENT) 38.8 SEC (24.3-30.1)
[2017-08-27 22:43] LABS: APTT (PATIENT) 40.2 SEC (24.3-30.1)
--- NOTE | 2017-08-27 23:07 | RADRPT ---
EXAM DATE/TIME: 08/27/2017 22:49 [place] COMPARISON: CT BRAIN W/O CONTRAST, August 26, 2017, 15:09. INDICATIONS : Follow up stroke; post TPA. RADIATION DOSE: 48.10 CTDIvol (mGy) MEDICAL HISTORY : Cerebrovascular disease. SURGICAL HISTORY : None. ENCOUNTER: Subsequent ACUITY: 1 day PAIN SCALE: 0/10 LOCATION: cranial TECHNIQUE: Multiple contiguous axial images were obtained of the head. Using automated exposure control and adj ustment of the mA and/or kV according to patient size, radiation dose was kept as low as reasonably a chievable to obtain optimal diagnostic quality images. DICOM format image data is available electro nically for review and comparison. FINDINGS: CEREBRUM: The ventricles are normal for age. No evidence of midline shift, mass lesion, hemorrhage or acute in farction. No extra-axial fluid collections are seen. Chronic low attenuation in the periventricular white matter. POSTERIOR FOSSA: The cerebellum and brainstem are intact. The 4th ventricle is midline. The cerebellopontine angle i s unremarkable. EXTRACRANIAL: The visualized portion of the orbits is intact. SKULL: The calvaria is intact. No evidence of skull fracture. CONCLUSION: No bleed or other acute complication. Chronic white matter changes are again noted. Orlando Mares MD on August 27, 2017 at 23:04 Board Certified Radiologist. This report was verified electronically.
[2017-08-28] VITALS (14 sets, daily range): BP systolic 133–180; BP diastolic 63–81; PULSE 75–109; RESP 20–25; TEMP 97.7–98.8; O2SAT 27–100
[2017-08-28] MEDS: SODIUM CHLOR 0.9% 1000 ML INJ 1,000 ML IV SCH ×2 (01:25→16:24)
[2017-08-28] MEDS: CHLORHEXIDINE GLUCONATE 2 % 1 PACK (2 CLOTHS) TOP SCH (04:00)
[2017-08-28] MEDS: HEPARIN-D5W 25,000 U/250 ML 250 ML IV PRN (04:03)
[2017-08-28] MEDS: RESP: ALBUTEROL 2.5 MG/IPRATROPIUM 0.5 MG NEB (SCH) INH ×4 (04:19→20:29)
[2017-08-28 05:04] LABS: HEMATOCRIT 32.5 % (35.0-46.0); MEAN CELL VOLUME 91.9 FL (80.0-100.0); MEAN CORPUSCULAR HEMOGLOBIN 31.6 PG (27.0-34.0); MEAN CORPUSCULAR HGB CONC 34.4 % (32.0-36.0); PLATELET COUNT 147 TH/MM3 (150-450); RED BLOOD COUNT 3.54 MIL/MM3 (4.00-5.30); RED CELL DISTRIBUTION WIDTH 13.2 % (11.6-17.2); REVIEW FLAG FINAL; WHITE BLOOD COUNT 9.3 TH/MM3 (4.0-11.0)
[2017-08-28 05:09] LABS: APTT (PATIENT) 40.1 SEC (24.3-30.1)
[2017-08-28 05:19] LABS: BICARBONATE 21.1 MEQ/L (21.0-32.0); POTASSIUM 3.7 MEQ/L (3.5-5.1)
[2017-08-28] MEDS: hydrALAZINE HCL 20 MG/ML VIAL IV PUSH PRN ×4 (06:32→21:17)
--- NOTE | 2017-08-28 07:26 | HHI.CCPN ---
Subjective Remarks/Hospital Course This is a 86-year-old female. Date of admission 08/26/2017. Past medical history includes hypertension, diet-controlled diabetes, hypothyroidism and urinary incontinence. This had bilateral wrist surgeries in the past. She presents to [facility] with several-day history increasing shortness of breath. Denies any chest pain or pressure with this. Positive for dyspnea exertion. Denies orthopnea. Denies any recent travel. She states she has a fairly active lifestyle and takes care of stray cats CT pulmonary revealed bilateral pulmonary embolism. Patient was released from heparin drip. Patient can hypotensive. Bedside to occur revealed right ventricular strain with bowing D interseptum. Discussed patient benefits risk of alteplase infusion with ongoing hypotension increasing dyspnea. This includes acute active internal bleeding/acute intracranial hemorrhage etc.. Will check CT brain prior to initiation of alteplase. She agreed knowing benefits and risks of procedure Dr. Jacobo as seen the patient from cardiology standpoint. EKG revealedno specific ST-T changes. Troponin was elevated 1.6. official echocardiogram pending. Bedside echo revealed RV straining Subjective 08/27: Status post alteplase infusion 50 mg. Resuming home antihypertensives. Neurologically intact. Will check CT brain later this afternoon. Otherwise, denies chest pain or shortness of breath. 08/28: No acute events overnight. Patient continues on heparin infusion/PE protocol. Patient currently on room air O2 sat duration 97% no dyspnea. Patient tolerating diet. Blood pressure now well controlled with resumption of home medications. Objective Vital Signs Date Time Temp Pulse Resp B/P (MAP) Pulse Ox O2 Delivery O2 Flow Rate FiO2 08/28/17 06:00 86 08/28/17 04:00 20 178/81 (113) 97 08/28/17 00:00 97.7 08/27/17 20:29 21 08/26/17 11:59 Room Air Intake and Output 08/28/17 08/28/17 08/29/17 08:00 16:00 00:00 Intake Total 1431 ml Output Total 1000 ml Balance 431 ml Result Diagram: 08/28/17 0415 08/28/17 0415 Imaging Last Impressions Head CT 08/26/17 1141 Signed Impressions: Service Date/Time: Saturday, August 26, 2017 15:09 - CONCLUSION: 1. No acute intracranial hemorrhage. 2. Bilateral cortical atrophy and chronic white matter changes. Bassem Jones MD Chest X-Ray 08/26/17 1124 Signed Impressions: Service Date/Time: Saturday, August 26, 2017 11:29 - CONCLUSION: No acute disease. Bassem Jones MD CT Angiography 08/26/17 1124 Signed Impressions: Service Date/Time: Saturday, August 26, 2017 12:34 - CONCLUSION: 1. Extensive bilateral pulmonary emboli throughout all pulmonary artery branches. 2. Cardiomegaly and coronary artery calcifications. 3. 7 mm noncalcified nodule within the right lower lobe which is indeterminate. 4. Nodular infiltrate/scarring within the left posterior lower lobe. 5. Degenerative changes and scoliosis of the thoracic spine. Tyler Chiu MD Lower Extremity Ultrasound 08/26/17 0000 Signed Impressions: Service Date/Time: Saturday, August 26, 2017 17:56 - CONCLUSION: 1. Small amount of infrapopliteal thrombus in the tibial veins as above. No deep venous thrombosis above the knee. Edward Gibbs MD Objective Remarks GENERAL: This is a 86-year-old female resting in bed in no acute respiratory distress SKIN: Warm and dry. HEAD: Atraumatic. Normocephalic. EYES: Pupils equal and round about 2 mm bilaterally and reactive. No scleral icterus. No injection or drainage. ENT: No nasal bleeding or discharge. Mucous membranes pink and moist. NECK: Trachea midline. No JVD. CARDIOVASCULAR: Regular rate and rhythm. S1, S2 no S4 without murmur RESPIRATORY: No accessory muscle use. Clear to auscultation. Breath sounds equal bilaterally. GASTROINTESTINAL: Abdomen soft, non-tender, nondistended. Hepatic and splenic margins not palpable. MUSCULOSKELETAL: Extremities without significant peripheral edema. No obvious deformities. NEUROLOGICAL: Awake and alert. No obvious cranial nerve deficits. Motor grossly within normal limits. 5/5 muscle strength B/L arms and legs. Normal speech. PSYCHIATRIC: Appropriate mood and affect; insight and judgment normal. A/P Assessment and Plan Neuro/Psych: History of TIA 1990s Acetaminophen as needed for fever Hydrocodone/acetaminophen and morphine sulfate for pain management 08/27 CT brain -no acute abnormality CV: Elevated troponin Obstructive shock secondary to pulmonary embolism History of hypertension EKG revealed no significant ST-T changes. Cycle troponins every 6 hours 2. Downward trending Dr. Jacobo - cardiology is evaluating Resuming daily medication atenolol 25 mg daily lisinopril 20 mg daily light of hypotension Holding aspirin 81 mg daily after alteplase Bedside echo revealed intraseptal D bowling and RV strain. Formal 2-D echocardiogram pending Resp: Massive pulmonary embolism/acute CT pulmonary revealed bilateral pulmonary embolism Patient is currently motion of breath episode of hypotension transiently improved with IV fluids Discuss with patient's benefit versus risk of alteplase infusion. Risks include bleeding both internal and intracerebral hemorrhage. Greater than 6% chance of bleeding with initiation of alteplase. She is aware the risks and wishes to proceed. She received 50 mg alteplase is currently on heparin drip see orders GI: 08/27 1800 ADA diet IV pantoprazole for GI prophylaxis Docusate sodium/senna 1 tablet twice a day for bowel regimen : Urinary incontinence Continue oxybutynin 15 mill grams daily Rogers catheter for accurate I's and O's in a critically ill patient Endo: Diet-controlled diabetes mellitus Accu-Cheks before meals/at bedtime with Novulin R to maintain euglycemia/low regimen Check TSH. - Elevated 3.9. Recommend recheck in 3-6 weeks. Continue current levothyroxine 88 g daily Renal: Acute kidney injury - resolving Creatinine is currently 1.1 08/27 urine electrolytes and eosinophils negative, FENA 0.15% Currently on normal saline at 84 cc an hour Monitor urine output Accurate I's and O's Heme: Thrombocytopenia Right AT nonocclusive/left PT occlusive DVT Monitor daily. Coags within normal limits as well ID: Monitor for infection MSK: PT evaluate and treat. Currently on bedrest status post alteplase FEN: Replace electrolytes is clinically indicated Access - Utilize peripheral IV. Central line if indicated Prophylaxis - GI - pantoprazole - DVT - SCD/heparin drip Critical Care: Level II follow-up Physician Na Harrison MD Aug 28, 2017 07:26
[2017-08-28] MEDS: INSULIN NovoLIN REGULAR SUPPLEMENTAL SCALE SQ SCH ×4 (08:00→21:00)
[2017-08-28] MEDS: LISINOPRIL 20 MG TAB PO SCH (10:27)
[2017-08-28] MEDS: ATENOLOL 25 MG TAB PO SCH (10:27)
[2017-08-28] MEDS: DOCUSATE SODIUM 50 MG/SENNA 8.6 MG TAB PO SCH ×2 (10:27→21:16)
[2017-08-28] MEDS: TOLTERODINE TARTRATE 4 MG CAP LA PO SCH (10:28)
[2017-08-28] MEDS: LEVOTHYROXINE SODIUM 88 MCG TAB PO SCH (10:28)
[2017-08-28] MEDS: SODIUM CHLORIDE 0.9% FLUSH 10 ML FLUSH IV FLUSH SCH ×2 (10:29→21:17)
[2017-08-28] MEDS: PANTOPRAZOLE SODIUM 40 MG VIAL IV PUSH SCH (10:29)
[2017-08-28] MEDS ORDERED: POTASSIUM CHLORIDE 25 MEQ EFFERVESCENT TAB PO PRN (18:45)
[2017-08-28] MEDS ORDERED: POTASSIUM PHOSPHATE INJ 30 MMOL in SODIUM CHLOR 0.9% 250 ML INJ 250 ML IV PRN (18:45)
[2017-08-28] MEDS ORDERED: MAGNESIUM OXIDE 400 MG TAB PO PRN (18:45)
[2017-08-28] MEDS ORDERED: POTASSIUM PHOSPHATE MONOBASIC 500 MG TAB PO/TUBE PRN (18:45)
[2017-08-28] MEDS ORDERED: POTASSIUM CHLOR 20 MEQ PREMIX 100 ML IV PRN ×2 (18:45)
[2017-08-28] MEDS ORDERED: POTASSIUM CHLOR 40 MEQ PREMIX 100 ML IV PRN ×2 (18:45)
[2017-08-28] MEDS ORDERED: MAGNESIUM SULFATE INJ 4 GM in SODIUM CHLORIDE 0.9% INJ 92 ML IV PRN (18:45)
[2017-08-28] MEDS ORDERED: MAGNESIUM SULFATE INJ 2 GM in SODIUM CHLORIDE 0.9% INJ 96 ML IV PRN (18:45)
[2017-08-28] MEDS ORDERED: SODIUM PHOSPHATE INJ 30 MMOL in SODIUM CHLOR 0.9% 250 ML INJ 240 ML IV PRN (18:45)
[2017-08-28 20:41] LABS: MAGNESIUM 1.5 MG/DL (1.5-2.5)
[2017-08-28] MEDS: POTASSIUM PHOSPHATE MONOBASIC 500 MG TAB PO PRN (21:16)
[2017-08-29] VITALS (14 sets, daily range): BP systolic 140–187; BP diastolic 64–88; PULSE 71–95; RESP 21–30; TEMP 97.8–99.3; O2SAT 94–98
[2017-08-29] MEDS: POTASSIUM PHOSPHATE MONOBASIC 500 MG TAB PO PRN (00:56)
[2017-08-29] MEDS: SODIUM CHLOR 0.9% 1000 ML INJ 1,000 ML IV SCH ×3 (00:56→22:30)
[2017-08-29] MEDS: RESP: ALBUTEROL 2.5 MG/IPRATROPIUM 0.5 MG NEB (SCH) INH ×4 (04:00→21:10)
[2017-08-29] MEDS: CHLORHEXIDINE GLUCONATE 2 % 1 PACK (2 CLOTHS) TOP SCH (04:00)
[2017-08-29 05:15] LABS: HEMATOCRIT 34.8 % (35.0-46.0); MEAN CELL VOLUME 92.5 FL (80.0-100.0); MEAN CORPUSCULAR HEMOGLOBIN 30.5 PG (27.0-34.0); PLATELET COUNT 185 TH/MM3 (150-450); RED BLOOD COUNT 3.76 MIL/MM3 (4.00-5.30); RED CELL DISTRIBUTION WIDTH 13.8 % (11.6-17.2); REVIEW FLAG FINAL; WHITE BLOOD COUNT 9.7 TH/MM3 (4.0-11.0)
[2017-08-29 05:18] LABS: APTT (PATIENT) 40.8 SEC (24.3-30.1)
[2017-08-29 05:42] LABS: BICARBONATE 23.6 MEQ/L (21.0-32.0); POTASSIUM 3.8 MEQ/L (3.5-5.1)
[2017-08-29] MEDS: hydrALAZINE HCL 20 MG/ML VIAL IV PUSH PRN ×3 (06:20→21:18)
[2017-08-29] MEDS: INSULIN NovoLIN REGULAR SUPPLEMENTAL SCALE SQ SCH ×4 (08:00→21:00)
[2017-08-29] MEDS ORDERED: MAGNESIUM HYDROXIDE SUSP 30 ML CUP PO PRN (08:30)
[2017-08-29] MEDS ORDERED: BISACODYL 10 MG SUPP RECTAL PRN (08:30)
[2017-08-29] MEDS ORDERED: LACTULOSE SYRUP 20 GM/30 ML CUP PO PRN (08:30)
[2017-08-29] MEDS ORDERED: SENNOSIDES 8.6 MG TAB PO PRN (08:30)
[2017-08-29] MEDS: SODIUM CHLORIDE 0.9% FLUSH 10 ML FLUSH IV FLUSH SCH ×2 (08:45→21:07)
[2017-08-29] MEDS: HEPARIN-D5W 25,000 U/250 ML 250 ML IV PRN (08:46)
[2017-08-29] MEDS: TOLTERODINE TARTRATE 4 MG CAP LA PO SCH (08:48)
[2017-08-29] MEDS: LEVOTHYROXINE SODIUM 88 MCG TAB PO SCH (08:48)
[2017-08-29] MEDS: PANTOPRAZOLE SOD 40 MG DELAYED RELEASE TAB PO SCH (08:48)
[2017-08-29] MEDS: DOCUSATE SODIUM 50 MG/SENNA 8.6 MG TAB PO SCH ×2 (08:48→21:00)
[2017-08-29] MEDS: ATENOLOL 25 MG TAB PO SCH (08:49)
[2017-08-29] MEDS: LISINOPRIL 20 MG TAB PO SCH (08:49)
--- NOTE | 2017-08-29 14:54 | ECHRPT ---
Indication: CHEST PAIN CONCLUSIONS Normal left ventricular size. Wall thickness is normal. The left ventricular systolic function is normal with an estimated ejection fraction in the range of 55-60%. Mitral annular calcification is present. Mild thickening of the mitral valve leaflets. Aortic valve sclerosis is present. There is trace tricuspid valve regurgitation. BP: / HR: Rhythm: MEASUREMENTS (Male / Female) Normal Values Technical Quality:Good 2D ECHO LV Diastolic Diameter PLAX 4.2 cm 4.2 - 5.9 / 3.9 - 5.3 cm LV Systolic Diameter PLAX 3.3 cm IVS Diastolic Thickness 1.0 cm 0.6 - 1.0 / 0.6 - 0.9 cm LVPW Diastolic Thickness 0.7 cm 0.6 - 1.0 / 0.6 - 0.9 cm LV Relative Wall Thickness 0.4 LA Systolic Diameter LX 3.2 cm 3.0 - 4.0 / 2.7 - 3.8 cm M-MODE Aortic Root Diameter MM 3.3 cm AV Cusp Separation MM 1.9 cm DOPPLER AV Peak Velocity 186.0 cm/s AV Peak Gradient 13.8 mmHg MV Peak Velocity 150.0 cm/s MV Peak Gradient 9.0 mmHg MV Mean Velocity 87.5 cm/s MV Mean Gradient 4.0 mmHg TR Peak Velocity 293.0 cm/s TR Peak Gradient 34.3 mmHg FINDINGS LEFT VENTRICLE Normal left ventricular size. Wall thickness is normal. The left ventricular systolic function is normal with an estimated ejection fraction in the range of 55-60%. RIGHT VENTRICLE Normal right ventricular size and systolic function. LEFT ATRIUM The left atrial size is normal. RIGHT ATRIUM The right atrial size is normal. ATRIAL SEPTUM Normal atrial septal thickness without atrial level shunting by limited color doppler interrogation. AORTA The aortic root and proximal ascending aorta are normal in size on limited imaging. MITRAL VALVE Mitral annular calcification is present. Mild thickening of the mitral valve leaflets. AORTIC VALVE Aortic valve sclerosis is present. TRICUSPID VALVE There is trace tricuspid valve regurgitation. PULMONARY VALVE The pulmonary valve is not well visualized. VESSELS The inferior vena cava is normal in size. PERICARDIUM No pericardial effusion. Srinath Guzman MD, FACC (Electronically Signed) Final Date:29 August 2017 14:53
--- NOTE | 2017-08-29 14:59 | HHI.CCPN ---
Subjective Remarks/Hospital Course This is a 86-year-old female. Date of admission 08/26/2017. Past medical history includes hypertension, diet-controlled diabetes, hypothyroidism and urinary incontinence. This had bilateral wrist surgeries in the past. She presents to [facility] with several-day history increasing shortness of breath. Denies any chest pain or pressure with this. Positive for dyspnea exertion. Denies orthopnea. Denies any recent travel. She states she has a fairly active lifestyle and takes care of stray cats CT pulmonary revealed bilateral pulmonary embolism. Patient was released from heparin drip. Patient can hypotensive. Bedside to occur revealed right ventricular strain with bowing D interseptum. Discussed patient benefits risk of alteplase infusion with ongoing hypotension increasing dyspnea. This includes acute active internal bleeding/acute intracranial hemorrhage etc.. Will check CT brain prior to initiation of alteplase. She agreed knowing benefits and risks of procedure Dr. Jacobo as seen the patient from cardiology standpoint. EKG revealedno specific ST-T changes. Troponin was elevated 1.6. official echocardiogram pending. Bedside echo revealed RV straining Subjective 08/27: Status post alteplase infusion 50 mg. Resuming home antihypertensives. Neurologically intact. Will check CT brain later this afternoon. Otherwise, denies chest pain or shortness of breath. 08/28: No acute events overnight. Patient continues on heparin infusion/PE protocol. Patient currently on room air O2 sat duration 97% no dyspnea. Patient tolerating diet. Blood pressure now well controlled with resumption of home medications. 08/29: Tolerating diet, patient weaned off oxygen maintain O2 sat 97% on room air. Bowel regimen initiated. Transition to Coumadin in a.m.. Objective Vital Signs Date Time Temp Pulse Resp B/P (MAP) Pulse Ox O2 Delivery O2 Flow Rate FiO2 08/29/17 14:00 77 08/29/17 12:00 98.9 24 174/81 (112) 98 08/28/17 20:31 21 08/26/17 11:59 Room Air Intake and Output 08/29/17 08/29/17 08/30/17 08:00 16:00 00:00 Intake Total 1832 ml Output Total 2400 ml Balance -568 ml Result Diagram: 08/29/17 0420 08/29/17 0420 Imaging Last Impressions Head CT 08/26/17 1434 Signed Impressions: Service Date/Time: Saturday, August 26, 2017 15:09 - CONCLUSION: 1. No acute intracranial hemorrhage. 2. Bilateral cortical atrophy and chronic white matter changes. Bassem Jones MD Chest X-Ray 08/26/17 1124 Signed Impressions: Service Date/Time: Saturday, August 26, 2017 11:29 - CONCLUSION: No acute disease. Bassem Jones MD CT Angiography 08/26/17 1124 Signed Impressions: Service Date/Time: Saturday, August 26, 2017 12:34 - CONCLUSION: 1. Extensive bilateral pulmonary emboli throughout all pulmonary artery branches. 2. Cardiomegaly and coronary artery calcifications. 3. 7 mm noncalcified nodule within the right lower lobe which is indeterminate. 4. Nodular infiltrate/scarring within the left posterior lower lobe. 5. Degenerative changes and scoliosis of the thoracic spine. Tyler Chiu MD Lower Extremity Ultrasound 08/26/17 0000 Signed Impressions: Service Date/Time: Saturday, August 26, 2017 17:56 - CONCLUSION: 1. Small amount of infrapopliteal thrombus in the tibial veins as above. No deep venous thrombosis above the knee. Edward Gibbs MD Objective Remarks GENERAL: This is a 86-year-old female resting in bed in no acute respiratory distress SKIN: Warm and dry. HEAD: Atraumatic. Normocephalic. EYES: Pupils equal and round about 2 mm bilaterally and reactive. No scleral icterus. No injection or drainage. ENT: No nasal bleeding or discharge. Mucous membranes pink and moist. NECK: Trachea midline. No JVD. CARDIOVASCULAR: Regular rate and rhythm. S1, S2 no S4 without murmur RESPIRATORY: No accessory muscle use. Clear to auscultation. Breath sounds equal bilaterally. GASTROINTESTINAL: Abdomen soft, non-tender, nondistended. Hepatic and splenic margins not palpable. MUSCULOSKELETAL: Extremities without significant peripheral edema. No obvious deformities. NEUROLOGICAL: Awake and alert. No obvious cranial nerve deficits. Motor grossly within normal limits. 5/5 muscle strength B/L arms and legs. Normal speech. PSYCHIATRIC: Appropriate mood and affect; insight and judgment normal. A/P Assessment and Plan Neuro/Psych: History of TIA 1990s Acetaminophen as needed for fever Hydrocodone/acetaminophen and morphine sulfate for pain management 08/27 CT brain -no acute abnormality CV: Elevated troponin Obstructive shock secondary to pulmonary embolism History of hypertension EKG revealed no significant ST-T changes. Cycle troponins every 6 hours 2. Downward trending Dr. Jacobo - cardiology is following Resuming daily medication atenolol 25 mg daily lisinopril 20 mg daily light of hypotension Holding aspirin 81 mg daily after alteplase Bedside echo revealed intraseptal D bowling and RV strain. Formal 2-D echocardiogram pending Transition to Coumadin pharmacy dosing and a.m. Resp: Massive pulmonary embolism/acute CT pulmonary revealed bilateral pulmonary embolism Patient is currently motion of breath episode of hypotension transiently improved with IV fluids Discuss with patient's benefit versus risk of alteplase infusion. Risks include bleeding both internal and intracerebral hemorrhage. Greater than 6% chance of bleeding with initiation of alteplase. She is aware the risks and wishes to proceed. She received 50 mg alteplase is currently on heparin drip see orders GI: 08/27 1800 ADA diet IV pantoprazole for GI prophylaxis Docusate sodium/senna 1 tablet twice a day for bowel regimen : Urinary incontinence Continue oxybutynin 15 mill grams daily Rogers catheter for accurate I's and O's in a critically ill patient Endo: Diet-controlled diabetes mellitus Accu-Cheks before meals/at bedtime with Novulin R to maintain euglycemia/low regimen Check TSH. - Elevated 3.9. Recommend recheck in 3-6 weeks. Continue current levothyroxine 88 g daily Renal: Acute kidney injury - resolving Creatinine is currently 1.1 08/27 urine electrolytes and eosinophils negative, FENA 0.15% Currently on normal saline at 84 cc an hour Monitor urine output Accurate I's and O's Heme: Thrombocytopenia Right AT nonocclusive/left PT occlusive DVT Monitor daily. Coags within normal limits as well 08/30 transition to Coumadin ID: Monitor for infection MSK: PT evaluate and treat. Begin out of bed to chair on 08/30 FEN: Replace electrolytes is clinically indicated Access - Utilize peripheral IV. Central line if indicated Prophylaxis - GI - pantoprazole - DVT - SCD/heparin drip Critical Care: Level II follow-up Physician Na Harrison MD Aug 29, 2017 14:59
[2017-08-29] MEDS: hydrALAZINE HCL 10 MG TAB PO SCH ×2 (16:20→21:06)
[2017-08-30] VITALS (21 sets, daily range): BP systolic 128–214; BP diastolic 56–128; PULSE 76–98; RESP 18–31; TEMP 98.4–99.6; O2SAT 88–97
[2017-08-30] MEDS: RESP: ALBUTEROL 2.5 MG/IPRATROPIUM 0.5 MG NEB (SCH) INH ×2 (04:00→08:56)
[2017-08-30] MEDS: hydrALAZINE HCL 10 MG TAB PO SCH ×3 (06:58→22:09)
[2017-08-30] MEDS: INSULIN NovoLIN REGULAR SUPPLEMENTAL SCALE SQ SCH ×4 (07:56→21:00)
[2017-08-30] MEDS: SODIUM CHLORIDE 0.9% FLUSH 10 ML FLUSH IV FLUSH SCH ×2 (07:56→22:10)
[2017-08-30] MEDS: TOLTERODINE TARTRATE 4 MG CAP LA PO SCH (07:58)
[2017-08-30] MEDS: LISINOPRIL 20 MG TAB PO SCH (07:58)
[2017-08-30] MEDS: PANTOPRAZOLE SOD 40 MG DELAYED RELEASE TAB PO SCH (07:58)
[2017-08-30] MEDS: ATENOLOL 25 MG TAB PO SCH (07:59)
[2017-08-30] MEDS: LEVOTHYROXINE SODIUM 88 MCG TAB PO SCH (07:59)
[2017-08-30] MEDS: DOCUSATE SODIUM 50 MG/SENNA 8.6 MG TAB PO SCH ×2 (07:59→22:09)
[2017-08-30 08:02] LABS: APTT (PATIENT) 35.2 SEC (24.3-30.1)
[2017-08-30 09:34] LABS: INTERNATIONAL NORMALIZED RATIO 1.1 RATIO; PROTHROMBIN TIME - PATIENT 11.3 SEC (9.8-11.6)
[2017-08-30] MEDS: SODIUM CHLOR 0.9% 1000 ML INJ 1,000 ML IV SCH (11:54)
[2017-08-30] MEDS: hydrALAZINE HCL 20 MG/ML VIAL IV PUSH PRN ×4 (12:44→23:55)
[2017-08-30] MEDS: SODIUM CHLORIDE 0.9% FLUSH 10 ML FLUSH IV FLUSH PRN ×2 (12:45→18:03)
--- NOTE | 2017-08-30 14:13 | HHI.CCPN ---
Subjective Remarks/Hospital Course This is a 86-year-old female. Date of admission 08/26/2017. Past medical history includes hypertension, diet-controlled diabetes, hypothyroidism and urinary incontinence. This had bilateral wrist surgeries in the past. She presents to [facility] with several-day history increasing shortness of breath. Denies any chest pain or pressure with this. Positive for dyspnea exertion. Denies orthopnea. Denies any recent travel. She states she has a fairly active lifestyle and takes care of stray cats CT pulmonary revealed bilateral pulmonary embolism. Patient was released from heparin drip. Patient can hypotensive. Bedside to occur revealed right ventricular strain with bowing D interseptum. Discussed patient benefits risk of alteplase infusion with ongoing hypotension increasing dyspnea. This includes acute active internal bleeding/acute intracranial hemorrhage etc.. Will check CT brain prior to initiation of alteplase. She agreed knowing benefits and risks of procedure Dr. Jacobo as seen the patient from cardiology standpoint. EKG revealedno specific ST-T changes. Troponin was elevated 1.6. official echocardiogram pending. Bedside echo revealed RV straining Subjective 08/27: Status post alteplase infusion 50 mg. Resuming home antihypertensives. Neurologically intact. Will check CT brain later this afternoon. Otherwise, denies chest pain or shortness of breath. 08/28: No acute events overnight. Patient continues on heparin infusion/PE protocol. Patient currently on room air O2 saturation 97% no dyspnea. Patient tolerating diet. Blood pressure now well controlled with resumption of home medications. 08/29: Tolerating diet, patient weaned off oxygen maintain O2 sat 97% on room air. Bowel regimen initiated. Transition to Coumadin in a.m.. 08/30: No acute events overnight. Patient out of bed to chair. Morning antihypertensive atenolol increased to 50 mg daily. Objective Vital Signs Date Time Temp Pulse Resp B/P (MAP) Pulse Ox O2 Delivery O2 Flow Rate FiO2 08/30/17 14:00 86 26 128/56 (80) 95 08/30/17 12:00 98.8 08/29/17 21:10 21 08/26/17 11:59 Room Air Intake and Output 08/30/17 08/30/17 08/31/17 08:00 16:00 00:00 Intake Total 100 ml Output Total 1550 ml Balance -1450 ml Result Diagram: 08/29/17 0420 08/29/17 0420 Imaging Last Impressions Head CT 08/26/17 1434 Signed Impressions: Service Date/Time: Saturday, August 26, 2017 15:09 - CONCLUSION: 1. No acute intracranial hemorrhage. 2. Bilateral cortical atrophy and chronic white matter changes. Bassem Jones MD Chest X-Ray 08/26/17 1124 Signed Impressions: Service Date/Time: Saturday, August 26, 2017 11:29 - CONCLUSION: No acute disease. Bassem Jones MD CT Angiography 08/26/17 1124 Signed Impressions: Service Date/Time: Saturday, August 26, 2017 12:34 - CONCLUSION: 1. Extensive bilateral pulmonary emboli throughout all pulmonary artery branches. 2. Cardiomegaly and coronary artery calcifications. 3. 7 mm noncalcified nodule within the right lower lobe which is indeterminate. 4. Nodular infiltrate/scarring within the left posterior lower lobe. 5. Degenerative changes and scoliosis of the thoracic spine. Tyler Chiu MD Lower Extremity Ultrasound 08/26/17 0000 Signed Impressions: Service Date/Time: Saturday, August 26, 2017 17:56 - CONCLUSION: 1. Small amount of infrapopliteal thrombus in the tibial veins as above. No deep venous thrombosis above the knee. Edward Gibbs MD Objective Remarks GENERAL: This is a 86-year-old female sitting in chair SKIN: Warm and dry. HEAD: Atraumatic. Normocephalic. EYES: Pupils equal and round about 2 mm bilaterally and reactive. No scleral icterus. No injection or drainage. ENT: No nasal bleeding or discharge. Mucous membranes pink and moist. NECK: Trachea midline. No JVD. CARDIOVASCULAR: Regular rate and rhythm. S1, S2 no S4 without murmur RESPIRATORY: No accessory muscle use. Clear to auscultation. Breath sounds equal bilaterally. GASTROINTESTINAL: Abdomen soft, non-tender, nondistended. Hepatic and splenic margins not palpable. MUSCULOSKELETAL: Extremities without significant peripheral edema. No obvious deformities. NEUROLOGICAL: Awake and alert. No obvious cranial nerve deficits. Motor grossly within normal limits. 5/5 muscle strength B/L arms and legs. Normal speech. PSYCHIATRIC: Appropriate mood and affect; insight and judgment normal. A/P Assessment and Plan Neuro/Psych: History of TIA 1990s Acetaminophen as needed for fever Hydrocodone/acetaminophen and morphine sulfate for pain management 08/27 CT brain -no acute abnormality CV: Elevated troponin Obstructive shock secondary to pulmonary embolism History of hypertension EKG revealed no significant ST-T changes. Cycle troponins every 6 hours [address] Downward trend[address] Jacobo - cardiology is following 08/28 Resumed daily medication atenolol 25 mg daily lisinopril 20 mg daily l Holding aspirin 81 mg daily after alteplase Bedside echo revealed intraseptal D bowling and RV strain. Formal 2-D echocardiogram pending Transition to Coumadin pharmacy dosing and a.m. 08/30 Atenolol increased to 50 mg daily Resp: Massive pulmonary embolism/acute CT pulmonary revealed bilateral pulmonary embolism Patient is currently motion of breath episode of hypotension transiently improved with IV fluids Discuss with patient's benefit versus risk of alteplase infusion. Risks include bleeding both internal and intracerebral hemorrhage. Greater than 6% chance of bleeding with initiation of alteplase. She is aware the risks and wishes to proceed. She received 50 mg alteplase is currently on heparin drip see orders GI: 08/27 1800 ADA diet IV pantoprazole for GI prophylaxis Docusate sodium/senna 1 tablet twice a day for bowel regimen : Urinary incontinence Continue oxybutynin 15 mill grams daily Rogers catheter for accurate I's and O's in a critically ill patient Endo: Diet-controlled diabetes mellitus Accu-Cheks before meals/at bedtime with Novulin R to maintain euglycemia/low regimen Check TSH. - Elevated 3.9. Recommend recheck in 3-6 weeks. Continue current levothyroxine 88 g daily Renal: Acute kidney injury - resolving 08/27 urine electrolytes and eosinophils negative, FENA 0.15% Currently on normal saline at 84 cc an hour Monitor urine output Accurate I's and O's Heme: Thrombocytopenia Right AT nonocclusive/left PT occlusive DVT Monitor daily. Coags within normal limits as well 08/30 transition to Coumadin ID: Monitor for infection MSK: PT evaluate and treat. Begin out of bed to chair on 08/30 FEN: Replace electrolytes is clinically indicated Access - Utilize peripheral IV. Central line if indicated Prophylaxis - GI - pantoprazole - DVT - SCD/heparin drip Critical Care: Level II follow-up. Plan transfer to [facility] in the a.m.. Plan transfer to [facility] Physician Na Harrison MD Aug 30, 2017 14:13
[2017-08-30] MEDS ORDERED: diphenhydrAMINE HCL 25 MG CAP PO ONE (15:15)
[2017-08-30] MEDS: WARFARIN SOD 3 MG TAB PO SCH (15:25)
[2017-08-30] MEDS: HEPARIN-D5W 25,000 U/250 ML 250 ML IV PRN (22:14)
[2017-08-31] VITALS (19 sets, daily range): BP systolic 122–200; BP diastolic 63–93; PULSE 70–158; RESP 16–26; TEMP 97.6–99.1; O2SAT 92–97
[2017-08-31] MEDS: CHLORHEXIDINE GLUCONATE 2 % 1 PACK (2 CLOTHS) TOP SCH (04:00)
[2017-08-31] MEDS: hydrALAZINE HCL 20 MG/ML VIAL IV PUSH PRN (04:10)
[2017-08-31] MEDS: LEVOTHYROXINE SODIUM 88 MCG TAB PO SCH (04:10)
[2017-08-31] MEDS: hydrALAZINE HCL 10 MG TAB PO SCH ×3 (04:10→22:21)
[2017-08-31 05:40] LABS: INTERNATIONAL NORMALIZED RATIO 1.1 RATIO
[2017-08-31 06:34] LABS: APTT (PATIENT) 28.9 SEC (24.3-30.1)
[2017-08-31] MEDS: INSULIN NovoLIN REGULAR SUPPLEMENTAL SCALE SQ SCH ×4 (08:00→21:00)
[2017-08-31] MEDS: SODIUM CHLORIDE 0.9% FLUSH 10 ML FLUSH IV FLUSH SCH ×2 (08:47→22:21)
[2017-08-31] MEDS: PANTOPRAZOLE SOD 40 MG DELAYED RELEASE TAB PO SCH (08:47)
[2017-08-31] MEDS: TOLTERODINE TARTRATE 4 MG CAP LA PO SCH (08:47)
[2017-08-31] MEDS: ATENOLOL 50 MG TAB PO SCH (08:47)
[2017-08-31] MEDS: DOCUSATE SODIUM 50 MG/SENNA 8.6 MG TAB PO SCH ×2 (08:47→22:21)
[2017-08-31] MEDS: LISINOPRIL 20 MG TAB PO SCH (08:47)
--- NOTE | 2017-08-31 14:40 | HHI.CCPN ---
Subjective Remarks/Hospital Course This is a 86-year-old female. Date of admission 08/26/2017. Past medical history includes hypertension, diet-controlled diabetes, hypothyroidism and urinary incontinence. This had bilateral wrist surgeries in the past. She presents to [facility] with several-day history increasing shortness of breath. Denies any chest pain or pressure with this. Positive for dyspnea exertion. Denies orthopnea. Denies any recent travel. She states she has a fairly active lifestyle and takes care of stray cats CT pulmonary revealed bilateral pulmonary embolism. Patient was released from heparin drip. Patient can hypotensive. Bedside to occur revealed right ventricular strain with bowing D interseptum. Discussed patient benefits risk of alteplase infusion with ongoing hypotension increasing dyspnea. This includes acute active internal bleeding/acute intracranial hemorrhage etc.. Will check CT brain prior to initiation of alteplase. She agreed knowing benefits and risks of procedure Dr. Jacobo as seen the patient from cardiology standpoint. EKG revealedno specific ST-T changes. Troponin was elevated 1.6. official echocardiogram pending. Bedside echo revealed RV straining Subjective 08/27: Status post alteplase infusion 50 mg. Resuming home antihypertensives. Neurologically intact. Will check CT brain later this afternoon. Otherwise, denies chest pain or shortness of breath. 08/28: No acute events overnight. Patient continues on heparin infusion/PE protocol. Patient currently on room air O2 saturation 97% no dyspnea. Patient tolerating diet. Blood pressure now well controlled with resumption of home medications. 08/29: Tolerating diet, patient weaned off oxygen maintain O2 sat 97% on room air. Bowel regimen initiated. Transition to Coumadin in a.m.. 08/30: No acute events overnight. Patient out of bed to chair. Morning antihypertensive atenolol increased to 50 mg daily. 08/31: Patient up out of bed to chair. Physical therapy now working with the patient with strengthening exercises. Transition to Coumadin and has begun. No respiratory distress the patient remains on room air with O2 sat at 97%. Patient tolerating diet. Objective Vital Signs Date Time Temp Pulse Resp B/P (MAP) Pulse Ox O2 Delivery O2 Flow Rate FiO2 08/31/17 14:00 81 08/31/17 12:43 94 08/31/17 12:00 22 141/63 (89) 08/31/17 11:26 97.6 12/18/17 21:10 21 Result Diagram: 08/29/17 0420 08/29/17 0420 Imaging Last Impressions Head CT 08/26/17 1434 Signed Impressions: Service Date/Time: Saturday, August 26, 2017 15:09 - CONCLUSION: 1. No acute intracranial hemorrhage. 2. Bilateral cortical atrophy and chronic white matter changes. Bassem Jones MD Chest X-Ray 08/26/17 1124 Signed Impressions: Service Date/Time: Saturday, August 26, 2017 11:29 - CONCLUSION: No acute disease. Bassem Jones MD CT Angiography 08/26/17 1124 Signed Impressions: Service Date/Time: Saturday, August 26, 2017 12:34 - CONCLUSION: 1. Extensive bilateral pulmonary emboli throughout all pulmonary artery branches. 2. Cardiomegaly and coronary artery calcifications. 3. 7 mm noncalcified nodule within the right lower lobe which is indeterminate. 4. Nodular infiltrate/scarring within the left posterior lower lobe. 5. Degenerative changes and scoliosis of the thoracic spine. Tyler Chiu MD Lower Extremity Ultrasound 08/26/17 0000 Signed Impressions: Service Date/Time: Saturday, August 26, 2017 17:56 - CONCLUSION: 1. Small amount of infrapopliteal thrombus in the tibial veins as above. No deep venous thrombosis above the knee. Edward Gibbs MD Objective Remarks GENERAL: This is a 86-year-old female sitting in chair in no apparent distress SKIN: Warm and dry. HEAD: Atraumatic. Normocephalic. EYES: Pupils equal and round about 2 mm bilaterally and reactive. No scleral icterus. No injection or drainage. ENT: No nasal bleeding or discharge. Mucous membranes pink and moist. NECK: Trachea midline. No JVD. CARDIOVASCULAR: Regular rate and rhythm. S1, S2 no S4 without murmur RESPIRATORY: No accessory muscle use. Clear to auscultation. Breath sounds equal bilaterally. GASTROINTESTINAL: Abdomen soft, non-tender, nondistended. Hepatic and splenic margins not palpable. MUSCULOSKELETAL: Extremities without significant peripheral edema. No obvious deformities. NEUROLOGICAL: Awake and alert. No obvious cranial nerve deficits. Motor grossly within normal limits. 5/5 muscle strength B/L arms and legs. Normal speech. PSYCHIATRIC: Appropriate mood and affect; insight and judgment normal. A/P Assessment and Plan Neuro/Psych: History of TIA 1990s Acetaminophen as needed for fever Hydrocodone/acetaminophen and morphine sulfate for pain management 08/27 CT brain -no acute abnormality CV: Elevated troponin Obstructive shock secondary to pulmonary embolism History of hypertension EKG revealed no significant ST-T changes. Cycle troponins every 6 hours 2. Downward trending Dr. Jacobo - cardiology is following 08/28 Resumed daily medication atenolol 25 mg daily lisinopril 20 mg daily l Holding aspirin 81 mg daily after alteplase Bedside echo revealed intraseptal D bowling and RV strain. Formal 2-D echocardiogram pending Transition to Coumadin pharmacy dosing and a.m. 08/30 Atenolol increased to 50 mg daily Resp: Massive pulmonary embolism/acute CT pulmonary revealed bilateral pulmonary embolism Patient is currently motion of breath episode of hypotension transiently improved with IV fluids Discuss with patient's benefit versus risk of alteplase infusion. Risks include bleeding both internal and intracerebral hemorrhage. Greater than 6% chance of bleeding with initiation of alteplase. She is aware the risks and wishes to proceed. She received 50 mg alteplase is currently on heparin drip see orders GI: 08/27 1800 ADA diet IV pantoprazole for GI prophylaxis Docusate sodium/senna 1 tablet twice a day for bowel regimen : Urinary incontinence Continue oxybutynin 15 mill grams daily Accurate I's and O's Endo: Diet-controlled diabetes mellitus Accu-Cheks before meals/at bedtime with Novulin R to maintain euglycemia/low regimen Check TSH. - Elevated 3.9. Recommend recheck in 3-6 weeks. Continue current levothyroxine 88 g daily Renal: Acute kidney injury - resolving 08/27 urine electrolytes and eosinophils negative, FENA 0.15% IV heplocked Monitor urine output Accurate I's and O's Heme: Thrombocytopenia Right AT nonocclusive/left PT occlusive DVT Monitor daily. Coags within normal limits as well 08/30 transitioned to Coumadin, 08/21 INR 1.1 ID: Monitor for infection MSK: PT evaluate and treat. Begin out of bed to chair on 08/30 FEN: Replace electrolytes is clinically indicated Access - Utilize peripheral IV. Central line if indicated Prophylaxis - GI - pantoprazole - DVT - SCD/heparin drip Critical Care: Level II follow-up. [facility] Plan transfer to [facility]. Physician Na Harrison MD Aug 31, 2017 14:40
[2017-08-31 14:43] LABS: APTT (PATIENT) 34.3 SEC (24.3-30.1)
[2017-08-31] MEDS: WARFARIN SOD 3 MG TAB PO SCH (16:16)
[2017-08-31 21:13] LABS: APTT (PATIENT) 37.4 SEC (24.3-30.1)
[2017-09-01] VITALS (8 sets, daily range): BP systolic 109–176; BP diastolic 59–90; PULSE 73–87; RESP 16–18; TEMP 97.9–99.2; O2SAT 93–98
[2017-09-01] MEDS: CHLORHEXIDINE GLUCONATE 2 % 1 PACK (2 CLOTHS) TOP SCH ×2 (01:58→21:12)
[2017-09-01] MEDS: HEPARIN-D5W 25,000 U/250 ML 250 ML IV PRN (02:02)
[2017-09-01 02:49] LABS: HEMATOCRIT 35.6 % (35.0-46.0); MEAN CELL VOLUME 90.8 FL (80.0-100.0); MEAN CORPUSCULAR HEMOGLOBIN 31.7 PG (27.0-34.0); PLATELET COUNT 256 TH/MM3 (150-450); RED BLOOD COUNT 3.92 MIL/MM3 (4.00-5.30); RED CELL DISTRIBUTION WIDTH 13.1 % (11.6-17.2); REVIEW FLAG FINAL; WHITE BLOOD COUNT 9.8 TH/MM3 (4.0-11.0)
[2017-09-01 03:01] LABS: APTT (PATIENT) 44.1 SEC (24.3-30.1); INTERNATIONAL NORMALIZED RATIO 1.1 RATIO; PROTHROMBIN TIME - PATIENT 11.3 SEC (9.8-11.6)
[2017-09-01] MEDS: LEVOTHYROXINE SODIUM 88 MCG TAB PO SCH (06:00)
[2017-09-01] MEDS: hydrALAZINE HCL 10 MG TAB PO SCH ×3 (06:00→21:11)
[2017-09-01] MEDS: ATENOLOL 50 MG TAB PO SCH (07:56)
[2017-09-01] MEDS: TOLTERODINE TARTRATE 4 MG CAP LA PO SCH (07:57)
[2017-09-01] MEDS: DOCUSATE SODIUM 50 MG/SENNA 8.6 MG TAB PO SCH ×2 (07:57→21:11)
[2017-09-01] MEDS: PANTOPRAZOLE SOD 40 MG DELAYED RELEASE TAB PO SCH (07:57)
[2017-09-01] MEDS: LISINOPRIL 20 MG TAB PO SCH (07:59)
[2017-09-01] MEDS: INSULIN NovoLIN REGULAR SUPPLEMENTAL SCALE SQ SCH ×4 (08:00→21:00)
[2017-09-01] MEDS: SODIUM CHLORIDE 0.9% FLUSH 10 ML FLUSH IV FLUSH SCH ×2 (08:03→21:11)
[2017-09-01 10:36] LABS: POTASSIUM 3.8 MEQ/L (3.5-5.1)
--- NOTE | 2017-09-01 10:46 | HHI.PR ---
Subjective Remarks patient feeling better no chest pain some shortness of breath with movement but more comfortable denies any recent long trips, no calf pains Objective Vitals Vital Signs Date Time Temp Pulse Resp B/P (MAP) Pulse Ox O2 Delivery O2 Flow Rate FiO2 09/01/17 10:04 95 21 09/01/17 08:00 97.9 85 16 176/80 (112) 94 09/01/17 04:00 98.4 79 18 134/90 (105) 93 09/01/17 00:00 98.3 79 18 161/68 (99) 94 08/31/17 20:00 98.1 70 18 132/77 (95) 97 08/31/17 17:45 97.9 81 16 165/78 (107) 95 08/31/17 16:31 98.5 82 22 152/93 (112) 08/31/17 16:00 75 20 08/31/17 16:00 75 08/31/17 15:00 79 26 08/31/17 14:00 81 08/31/17 14:00 81 18 08/31/17 13:00 158 20 136/89 (105) 08/31/17 12:43 94 08/31/17 12:00 80 08/31/17 12:00 80 22 141/63 (89) 08/31/17 11:26 97.6 82 22 144/63 (90) I/O 08/31/17 08/31/17 08/31/17 09/01/17 09/01/17 09/01/17 07:00 15:00 23:00 07:00 15:00 23:00 # Voids 2 6 # Bowel Movements 0 Result Diagram: 09/01/17 0229 09/01/17 0954 Imaging Last Impressions Head CT 08/27/17 1700 Signed Impressions: Service Date/Time: Sunday, August 27, 2017 22:49 - CONCLUSION: No bleed or other acute complication. Chronic white matter changes are again noted. Orlando Mares MD Chest X-Ray 08/26/17 112 Signed Impressions: Service Date/Time: Saturday, August 26, 2017 11:29 - CONCLUSION: No acute disease. Bassem Jones MD CT Angiography 08/26/17 112 Signed Impressions: Service Date/Time: Saturday, August 26, 2017 12:34 - CONCLUSION: 1. Extensive bilateral pulmonary emboli throughout all pulmonary artery branches. 2. Cardiomegaly and coronary artery calcifications. 3. 7 mm noncalcified nodule within the right lower lobe which is indeterminate. 4. Nodular infiltrate/scarring within the left posterior lower lobe. 5. Degenerative changes and scoliosis of the thoracic spine. Tyler Chiu MD Lower Extremity Ultrasound 08/26/17 0000 Signed Impressions: Service Date/Time: Saturday, August 26, 2017 17:56 - CONCLUSION: 1. Small amount of infrapopliteal thrombus in the tibial veins as above. No deep venous thrombosis above the knee. Edward Gibbs MD Objective Remarks awake and alert, acomfortable on 2 LNC anicteric no nuchalr gidity no rales or wheezes regular rhythm abdomensoft, notnendere xtremities no edema- no calf tenderenss neuro exam- unremarkable A/P Problem List: (1) Acute massive pulmonary embolism ICD Code: I26.99 - Other pulmonary embolism without acute cor pulmonale (2) Urinary incontinence ICD Code: R32 - Unspecified urinary incontinence (3) Hypertension ICD Code: I10 - Essential (primary) hypertension (4) Hypothyroidism ICD Code: E03.9 - Hypothyroidism, unspecified (5) Elevated troponin ICD Code: R74.8 - Abnormal levels of other serum enzymes (6) Acute kidney injury ICD Code: N17.9 - Acute kidney failure, unspecified (7) Hyperglycemia ICD Code: R73.9 - Hyperglycemia, unspecified (8) Hypotension ICD Code: I95.9 - Hypotension, unspecified (9) History of TIA (transient ischemic attack) ICD Code: Z86.73 - Personal history of transient ischemic attack (TIA), and cerebral infarction without residual deficits (10) Diabetes mellitus ICD Code: E11.9 - Type 2 diabetes mellitus without complications Assessment and Plan 86 years old female Massive PE- first episode + thrombus left popliteal vein no history of malignancies or recent trips did states that her legs felt heavy weeks ago started on heparin + coumadin overlap consult Hematology for recommendation - ? newer OAC and ? hypercoaguable work up History of TIA 1990s neurologically stable Hydrocodone/acetaminophen and morphine sulfate for pain management 08/27 CT brain -no acute abnormality Elevated troponin- secondary to PE Obstructive shock secondary to pulmonary embolism History of hypertension EKG revealed no significant ST-T changes. Cycle troponins every 6 hours 2. Downward trend[address] Dr. Jacobo - cardiology is following 08/28 Resumed daily medication atenolol 25 mg daily lisinopril 20 mg daily l Holding aspirin 81 mg daily after alteplase Bedside echo revealed intraseptal D bowling and RV strain. Formal 2-D echocardiogram pending Transition to Coumadin pharmacy dosing and a.m. 08/30 Atenolol increased to 50 mg daily Resp: Massive pulmonary embolism/acute CT pulmonary revealed bilateral pulmonary embolism Patient is currently motion of breath episode of hypotension transiently improved with IV fluids Discuss with patient's benefit versus risk of alteplase infusion. Risks include bleeding both internal and intracerebral hemorrhage. Greater than 6% chance of bleeding with initiation of alteplase. She is aware the risks and wishes to proceed. She received 50 mg alteplase is currently on heparin drip see orders GI: 08/27 1800 ADA diet IV pantoprazole for GI prophylaxis Docusate sodium/senna 1 tablet twice a day for bowel regimen : Urinary incontinence Continue oxybutynin 15 mill grams daily Accurate I's and O's Endo: Diet-controlled diabetes mellitus Accu-Cheks before meals/at bedtime with Novulin R to maintain euglycemia/low regimen Check TSH. - Elevated 3.9. Recommend recheck in 3-6 weeks. Continue current levothyroxine 88 g daily Renal: Acute kidney injury - resolving 08/27 urine electrolytes and eosinophils negative, FENA 0.15% IV heplocked Monitor urine output Accurate I's and O's Heme: Thrombocytopenia Right AT nonocclusive/left PT occlusive DVT Monitor daily. Coags within normal limits as well 08/30 transitioned to Coumadin, 08/21 INR 1.1 ID: Monitor for infection MSK: PT evaluate and treat. Begin out of bed to chair on 08/30 FEN: Replace electrolytes is clinically indicated Access - Utilize peripheral IV. Central line if indicated Prophylaxis - GI - pantoprazole - DVT - SCD/heparin drip Problem Qualifiers (1) Urinary incontinence: Qualified Codes: R32 - Unspecified urinary incontinence (2) Hypertension: Qualified Codes: I10 - Essential (primary) hypertension (3) Hypothyroidism: Qualified Codes: E03.9 - Hypothyroidism, unspecified (4) Hypotension: Qualified Codes: I95.89 - Other hypotension (5) Diabetes mellitus: Qualified Codes: E11.8 - Type 2 diabetes mellitus with unspecified complications Brooke Walker MD Sep 01, 2017 10:46
[2017-09-01] MEDS ORDERED: WARFARIN SOD 2 MG TAB PO ONE (16:00)
[2017-09-01] MEDS ORDERED: DIATRIZOATE MEGLUM/DIATRIZOATE SOD 9 ML CUP PO ONE (17:16)
[2017-09-01] MEDS: APIXABAN 5 MG TABLET PO SCH (21:11)
[2017-09-02] VITALS (7 sets, daily range): BP systolic 103–167; BP diastolic 55–72; PULSE 63–88; RESP 17–19; TEMP 98.2–98.9; O2SAT 92–97
--- NOTE | 2017-09-02 00:15 | RADRPT ---
EXAM DATE/TIME: 09/01/2017 22:16 [place] COMPARISON: CT PULMONARY ANGIOGRAM, August 26, 2017, 12:34. INDICATIONS : Diffuse abdominal pain. ORAL CONTRAST: Prescribed oral contrast ingested. RADIATION DOSE: 13.44 CTDIvol (mGy) MEDICAL HISTORY : Hypertension. Hyperthyroidism. Diabetes. SURGICAL HISTORY : None. ENCOUNTER: Initial ACUITY: 3 days PAIN SCALE: 7/10 LOCATION: Abdomen. TECHNIQUE: Volumetric scanning of the abdomen and pelvis was performed. Using automated exposure control and ad justment of the mA and/or kV according to patient size, radiation dose was kept as low as reasonably achievable to obtain optimal diagnostic quality images. DICOM format image data is available electro nically for review and comparison. FINDINGS: LOWER LUNGS: Slight interval worsening in bibasilar atelectasis and effusion. LIVER: Small cyst in the left lobe. No evidence of suspicious mass or biliary ductal dilatation. SPLEEN: Normal size without lesion. PANCREAS: Within normal limits. KIDNEYS: Small cysts in the lower pole of the kidneys bilaterally. No evidence of stone or hydronephrosis. ADRENAL GLANDS: Within normal limits. VASCULAR: There is no aortic aneurysm. BOWEL/MESENTERY: Abundant stool throughout the proximal colon. No dilated small bowel loops. Moderately large hiatal h ernia. ABDOMINAL WALL: Within normal limits. RETROPERITONEUM: There is no lymphadenopathy. BLADDER: No wall thickening or mass. REPRODUCTIVE: Within normal limits. INGUINAL: There is no lymphadenopathy or hernia. MUSCULOSKELETAL: Within normal limits for patient age. CONCLUSION: Constipation. Slight interval worsening in lung base aeration. No other acute CT findings in the abdomen or pelvis. Orlando Castillo MD on September 02, 2017 at 0:08 Board Certified Radiologist. This report was verified electronically.
[2017-09-02] MEDS: hydrALAZINE HCL 10 MG TAB PO SCH ×3 (05:48→21:37)
[2017-09-02] MEDS: LEVOTHYROXINE SODIUM 88 MCG TAB PO SCH (05:48)
--- NOTE | 2017-09-02 06:52 | MB ---
cc: NURIS POLK ZAFAR MD DATE OF CONSULTATION 09/01/2017 DATE OF [address] Nuris Polk with [facility] CONSULTING SERVICE Hospitalist service REASON FOR CONSULTATION Bilateral pulmonary emboli associated with infrapopliteal thrombosis involving both the right and the left lower extremity. CHIEF COMPLAINT Mr. Box reports having progressive difficulty breathing starting 08/24/2017. HISTORY OF PRESENT ILLNESS Ms. Box is a pleasant 86-year-old female who reports having been in her usual state of health up until about eight months ago. She tells me that over the past eight months she has felt as if she has "aged 10 years". She reports having worsening appetite, unintended weight loss and progressive fatigue over this period of time. She has also noticed having bilateral lower extremity edema which made it difficult for her to ambulate. On 08/24/2017 she reports noticing difficulty breathing while she was doing groceries. She was unable to carry her grocery bag from her car into her house and required a neighbor's help. Later that evening she felt increasingly tired and short of breath. She held off on coming into the hospital until the morning after. She tells me she was unable to get up out of bed and get dressed that morning and asked a neighbor to bring her into the emergency department on 08/26/2017. At presentation to the emergency department the patient was noted to be hypotensive with a blood pressure of 68/46, she was noted to be hypoxic on room air but she has not had tachycardia. She underwent imaging studies including CT angiogram of the thorax which revealed bilateral pulmonary emboli involving bilateral main stem bronchi and ultrasound Doppler studies performed on 08/26/2017 which revealed bilateral lower extremity deep venous thromboses. Given the hypotension and hypoxia at the time of presentation, she was assessed to have massive pulmonary emboli and was treated with thrombolytic therapy with t-PA infusion. This was followed up by heparin infusion. Her clinical condition improved and she was transferred out of the critical care unit and to the med-surg floor. Medical Oncology has been asked to see her for further workup and management. She is presently on a heparin drip with bridging over to warfarin. Subjectively Ms. Box reports her breathing is much improved, she has been ambulating and she feels stronger by the day. PAST MEDICAL HISTORY 1. Diphtheria as a child. 2. Hypertension. 3. Hypothyroidism. 4. History of TIA. 5. Hyperlipidemia. 6. Personal history of tobaccoism. PAST SURGICAL HISTORY Left wrist surgery in December of 2016 for ORIF. No other surgery reported. FAMILY HISTORY The patient reports being adopted at the age of 11 days old. She did know her natural mother later in life. Her mother of an aneurysm in her 70s. No other family history is known. SOCIAL HISTORY The patient is . She never had children. She worked as a [employer] most of her life and moved to [place] from [facility]. She is a former smoker having smoked close to a pack a day for close to 25 years. She quit in 1979. She denies alcohol abuse. ALLERGIES The patient reports having allergies to STATIN DRUGS which have resulted in confusion. CURRENT INPATIENT MEDICATIONS 1. Eliquis 5 mg p.o. b.i.d. 2. Hydrocodone/acetaminophen 5/225 mg tablets every 4 hours. 3. Tylenol 650 mg p.o. q.6 hours. 4. Atenolol 50 mg p.o. b.i.d. 5. Colace/Senna 1 tablet p.o. b.i.d. 6. Hydralazine 10 mg p.o. q.8 hours. 7. Lactulose 30 mL p.o. daily. 8. Levothyroxine 88 mcg p.o. daily. 9. Lisinopril 20 mg p.o. daily. 10. Low dose Novolin insulin sliding scale before meals and before bedtime. 11. Magnesium hydroxide 30 mL p.o. q.12 hours as needed for constipation. 12. Morphine 2 mg IV q.2 hours as needed for pain. 13. Zofran 4 mg IV q.6 hours as needed for nausea and vomiting. 14. Pantoprazole 40 mcg p.o. daily. 15. Detrol LA 4 mg p.o. daily. REVIEW OF SYSTEMS A 13-point review of systems is obtained. The following are the third positives: CONSTITUTIONAL: The patient reports generalized fatigue, weakness, loss of appetite and unintended weight loss. She denies fevers, chills or night sweats. HEENT: Denies headaches, blurry vision, difficulty swallowing, soreness in the throat. RESPIRATORY: Reports exertional dyspnea which was acute in onset. She denies pleuritic chest pain, PND, orthopnea. CARDIOVASCULAR: Denies angina-like chest pain, PND, orthopnea. She does report lower extremity edema. GI: The patient reports heartburn, she reports loss of appetite. She denies hematochezia or melena. : No complaints other than urinary incontinence. EXPRESS MANAGER: Denies any focal sensorimotor deficits. No other complaints reported. PHYSICAL EXAMINATION VITAL SIGNS: Temperature 99.2 degrees Fahrenheit, heart rate 75 beats minute, respiratory rate 16, blood pressure is 138 x 63, O2 sats are 93% on room air. GENERAL PHYSICAL APPEARANCE: Ms. Box is an elderly female. She appears to be in no acute distress and has a pleasant disposition. She speaks to me in full sentences. HEENT: Head atraumatic, normocephalic. Conjunctivae are not pale. Sclerae are anicteric. EOMI, PERRLA. Oral exam - no pharyngeal erythema. NECK EXAM: No palpable cervical or supraclavicular adenopathy. RESPIRATORY EXAM: Good air movement bilaterally without added breath sounds. CARDIOVASCULAR EXAM: Regular rate and rhythm, S1-S2. No obvious murmurs, rubs or gallops. ABDOMINAL EXAM: Protuberant, soft and nontender. No definite organ enlargement. EXPRESS MANAGER: No focal sensorimotor deficits. LOWER EXTREMITIES: She does have bilateral pretibial edema. No calf tenderness. LABORATORY FINDINGS Blood work dated 09/01/2017: WBC count 9.8, hemoglobin 12.5 gm/dl, hematocrit 35.6%, platelet count is 256. Chemistries: Sodium 138, potassium 3.8, chloride 106, bicarb 24, BUN 19, creatinine 0.88, EGFR 61, random glucose 96, phosphorus is 3.2, calcium is elevated at 10.6. Albumin is low at 3. IMAGING STUDIES CT scan angiogram of the thoracic dated 08/26/2017: 1. Indicates extensive bilateral pulmonary emboli. 2. Cardiomegaly. 3. A 7-mm noncalcified nodule within the right lower lobe which is intermediate. 4. Nodular infiltrate/scarring of the left posterior lobe. 5. Degenerative changes of the thoracic spine. Ultrasound Dopplers of the lower extremities indicate small amount of infrapopliteal thrombosis in bilateral tibial veins. No deep venous thrombosis is noted above the knee. ASSESSMENT Ms. Box is an 86-year-old female who reports being in her usual fair state of health up until about 8 months ago. Over this period of time she has developed progressive weakness, fatigue, loss of appetite, weight loss and lower extremity edema. This has impacted her ability to ambulate. About 1-1/2 weeks ago she developed increasing difficulty breathing which acutely worsened over a period of 24 hours to the point where she was unable to get out of bed. She came into the emergency department and was noted to have bilateral pulmonary emboli, she was hypotensive and hypoxic at presentation and was assessed to have massive pulmonary emboli. She was treated appropriately with intravenous t-PA infusion. This resulted in immediate improvement in her respiratory status. She was subsequently initiated on heparin infusion. She is now being bridged over from heparin to warfarin. The Oncology Service has been asked to see her for further workup and evaluation. It appears her pulmonary emboli were seemingly unprovoked. Additional interesting findings are that of unexplained hypercalcemia. RECOMMENDATIONS 1. Unprovoked pulmonary emboli: I would at this point like to transition her from heparin and warfarin to Eliquis at a dose of 5 mg p.o. b.i.d. Her renal function will tolerate this agent. 2. Unexplained hypercalcemia as well as unexplained symptoms of weight loss, fatigue, weakness and progressive debility over the past 8 months: I would like to obtain an ultrasound of the abdomen and pelvis to rule out intraabdominal pathology. I will await those results. Follow up with me as an outpatient will be scheduled to review these results and possibly any future prothrombotic workup. DISPOSITION From an oncologic standpoint she may be discharged when medically cleared on oral Eliquis. MD BRENDA Jackson/GIANA /4:33 PM /6:10 AM
[2017-09-02] MEDS: INSULIN NovoLIN REGULAR SUPPLEMENTAL SCALE SQ SCH ×4 (08:00→21:00)
[2017-09-02] MEDS: DOCUSATE SODIUM 50 MG/SENNA 8.6 MG TAB PO SCH ×2 (09:00→21:36)
[2017-09-02 09:11] LABS: INTERNATIONAL NORMALIZED RATIO 1.2 RATIO
[2017-09-02 09:18] LABS: APTT (PATIENT) 26.2 SEC (24.3-30.1)
[2017-09-02] MEDS: APIXABAN 5 MG TABLET PO SCH ×2 (09:29→21:36)
[2017-09-02] MEDS: ATENOLOL 50 MG TAB PO SCH (09:30)
[2017-09-02] MEDS: LISINOPRIL 20 MG TAB PO SCH (09:30)
[2017-09-02] MEDS: PANTOPRAZOLE SOD 40 MG DELAYED RELEASE TAB PO SCH (09:30)
[2017-09-02] MEDS: TOLTERODINE TARTRATE 4 MG CAP LA PO SCH (09:30)
[2017-09-02] MEDS: SODIUM CHLORIDE 0.9% FLUSH 10 ML FLUSH IV FLUSH SCH ×2 (09:31→21:36)
--- NOTE | 2017-09-02 11:00 | HHI.PR ---
Subjective Remarks no complains of chest pain but subjectively feeels short of breath good sats at room air no abdominal pain complains Objective Vitals Vital Signs Date Time Temp Pulse Resp B/P (MAP) Pulse Ox O2 Delivery O2 Flow Rate FiO2 09/02/17 08:00 98.3 77 18 167/72 (103) 92 09/02/17 07:29 98.4 75 17 142/65 (90) 93 09/02/17 00:00 98.2 79 19 156/71 (99) 96 09/01/17 21:28 96 09/01/17 20:00 98.3 87 18 161/76 (104) 98 09/01/17 16:00 98.9 73 16 109/59 (76) 97 09/01/17 12:00 74 09/01/17 12:00 99.2 75 16 138/63 (88) 93 I/O 09/01/17 09/01/17 09/01/17 09/02/17 09/02/17 09/02/17 07:00 15:00 23:00 07:00 15:00 23:00 # Voids 6 2 3 # Bowel Movements 1 0 Result Diagram: 09/01/17 0229 09/01/17 0954 Imaging Last Impressions Abdomen/Pelvis CT 09/01/17 0000 Signed Impressions: Service Date/Time: August 22:16 - CONCLUSION: Constipation. Slight interval worsening in lung base aeration. No other acute CT findings in the abdomen or pelvis. Orlando Castillo MD Head CT 08/27/17 1700 Signed Impressions: Service Date/Time: Sunday, August 27, 2017 22:49 - CONCLUSION: No bleed or other acute complication. Chronic white matter changes are again noted. Orlando Mares MD Chest X-Ray 08/26/17 1124 Signed Impressions: Service Date/Time: Saturday, August 26, 2017 11:29 - CONCLUSION: No acute disease. Bassem Jones MD CT Angiography 08/26/17 1124 Signed Impressions: Service Date/Time: Saturday, August 26, 2017 12:34 - CONCLUSION: 1. Extensive bilateral pulmonary emboli throughout all pulmonary artery branches. 2. Cardiomegaly and coronary artery calcifications. 3. 7 mm noncalcified nodule within the right lower lobe which is indeterminate. 4. Nodular infiltrate/scarring within the left posterior lower lobe. 5. Degenerative changes and scoliosis of the thoracic spine. Tyler Chiu MD Lower Extremity Ultrasound 08/26/17 0000 Signed Impressions: Service Date/Time: Saturday, August 26, 2017 17:56 - CONCLUSION: 1. Small amount of infrapopliteal thrombus in the tibial veins as above. No deep venous thrombosis above the knee. Edward Gibbs MD Objective Remarks awake and alert, comfortable on 2 LNC anicteric no nuchalr rigidity no rales or wheezes regular rhythm abdomen soft, nontender extremities no edema- no calf tenderness neuro exam- unremarkable A/P Problem List: (1) Acute massive pulmonary embolism ICD Code: I26.99 - Other pulmonary embolism without acute cor pulmonale (2) Urinary incontinence ICD Code: R32 - Unspecified urinary incontinence (3) Hypertension ICD Code: I10 - Essential (primary) hypertension (4) Hypothyroidism ICD Code: E03.9 - Hypothyroidism, unspecified (5) Elevated troponin ICD Code: R74.8 - Abnormal levels of other serum enzymes (6) Acute kidney injury ICD Code: N17.9 - Acute kidney failure, unspecified (7) Hyperglycemia ICD Code: R73.9 - Hyperglycemia, unspecified (8) Hypotension ICD Code: I95.9 - Hypotension, unspecified (9) History of TIA (transient ischemic attack) ICD Code: Z86.73 - Personal history of transient ischemic attack (TIA), and cerebral infarction without residual deficits (10) Diabetes mellitus ICD Code: E11.9 - Type 2 diabetes mellitus without complications Assessment and Plan 86 years old female Massive PE- first episode + thrombus left popliteal vein no history of malignancies or recent trips did states that her legs felt heavy weeks ago started on heparin + coumadin overlap seen by Dr. Sunshine HOLLY with Eliquis CT of abdomen- negative. ambulate- gets sats with walk test History of TIA 1990s neurologically stable Hydrocodone/acetaminophen and morphine sulfate for pain management 08/27 CT brain -no acute abnormality Elevated troponin- secondary to PE Obstructive shock secondary to pulmonary embolism History of hypertension EKG revealed no significant ST-T changes. Cycle troponins every [address] Jacobo - cardiology is following 08/28 Resumed daily medication atenolol 25 mg daily lisinopril 20 mg daily l Holding aspirin 81 mg daily after alteplase Bedside echo revealed intraseptal D bowling and RV strain. Formal 2-D echocardiogram pending Transition to Coumadin pharmacy dosing and a.m. 08/30 Atenolol increased to 50 mg daily Resp: GI: 08/27 1800 ADA diet IV pantoprazole for GI prophylaxis Docusate sodium/senna 1 tablet twice a day for bowel regimen : Urinary incontinence Continue oxybutynin 15 mill grams daily Accurate I's and O's Endo: Diet-controlled diabetes mellitus Accu-Cheks before meals/at bedtime with Novulin R to maintain euglycemia/low regimen Check TSH. - Elevated 3.9. Recommend recheck in 3-6 weeks. Continue current levothyroxine 88 g daily Renal: Acute kidney injury - resolving 08/27 urine electrolytes and eosinophils negative, FENA 0.15% IV heplocked Monitor urine output Accurate I's and O's Heme: Thrombocytopenia Right AT nonocclusive/left PT occlusive DVT Monitor daily. Coags within normal limits as well 08/30 transitioned to Coumadin, 08/21 INR 1.1 ID: Monitor for infection MSK: PT evaluate and treat. Begin out of bed to chair on 08/30 FEN: Replace electrolytes is clinically indicated Access - Utilize peripheral IV. Central line if indicated Prophylaxis - GI - pantoprazole - DVT - SCD/heparin drip Problem Qualifiers (1) Urinary incontinence: Qualified Codes: R32 - Unspecified urinary incontinence (2) Hypertension: Qualified Codes: I10 - Essential (primary) hypertension (3) Hypothyroidism: Qualified Codes: E03.9 - Hypothyroidism, unspecified (4) Hypotension: Qualified Codes: I95.89 - Other hypotension (5) Diabetes mellitus: Qualified Codes: E11.8 - Type 2 diabetes mellitus with unspecified complications Brooke Walker MD Sep 02, 2017 11:00
[2017-09-02] MEDS ORDERED: HYDR-3798 PO (15:23)
[2017-09-02] MEDS ORDERED: ATEN25TA PO (15:23)
[2017-09-02] MEDS ORDERED: APIX5TAB PO (15:23)
--- NOTE | 2017-09-02 15:27 | HHI.DS ---
Discharge Summary Admission Date Aug 26, 2017 at 14:10 Discharge Date: Sep 02, 2017 Admitting Diagnosis PE, hypotension (1) Acute massive pulmonary embolism ICD Code: I26.99 - Other pulmonary embolism without acute cor pulmonale Diagnosis: Principal (2) Urinary incontinence ICD Code: R32 - Unspecified urinary incontinence Diagnosis: Secondary (3) Hypertension ICD Code: I10 - Essential (primary) hypertension Diagnosis: Secondary (4) Hypothyroidism ICD Code: E03.9 - Hypothyroidism, unspecified Diagnosis: Secondary (5) Elevated troponin ICD Code: R74.8 - Abnormal levels of other serum enzymes Diagnosis: Principal (6) Acute kidney injury ICD Code: N17.9 - Acute kidney failure, unspecified Diagnosis: Principal (7) Hyperglycemia ICD Code: R73.9 - Hyperglycemia, unspecified Diagnosis: Secondary Status: Resolved (8) Hypotension ICD Code: I95.9 - Hypotension, unspecified Diagnosis: Principal Status: Resolved (9) History of TIA (transient ischemic attack) ICD Code: Z86.73 - Personal history of transient ischemic attack (TIA), and cerebral infarction without residual deficits Diagnosis: Principal (10) Diabetes mellitus ICD Code: E11.9 - Type 2 diabetes mellitus without complications Diagnosis: Secondary Procedures none Brief History - From Admission This is a 86-year-old female. Date of admission 08/26/2017. Past medical history includes hypertension, diet-controlled diabetes, hypothyroidism and urinary incontinence. This had bilateral wrist surgeries in the past. She presents to [facility] with several-day history increasing shortness of breath. Denies any chest pain or pressure with this. Positive for dyspnea exertion. Denies orthopnea. Denies any recent travel. She states she has a fairly active lifestyle and takes care of stray cats CT pulmonary revealed bilateral pulmonary embolism. Patient was released from heparin drip. Patient can hypotensive. Bedside to occur revealed right ventricular strain with bowing D interseptum. Discussed patient benefits risk of alteplase infusion with ongoing hypotension increasing dyspnea. This includes acute active internal bleeding/acute intracranial hemorrhage etc.. Will check CT brain prior to initiation of alteplase. She agreed knowing benefits and risks of procedure Dr. Jacobo as seen the patient from cardiology standpoint. EKG revealedno specific ST-T changes. Troponin was elevated 1.6. official echocardiogram pending. Bedside echo revealed RV straining CBC/BMP: 09/01/17 0229 09/01/17 0954 Significant Findings Laboratory Tests Test 08/31/17 04:50 08/31/17 14:11 08/31/17 20:03 09/01/17 02:29 Activated Partial Thromboplast Time 34.3 SEC (24.3-30.1) 37.4 SEC (24.3-30.1) 44.1 SEC (24.3-30.1) Red Blood Count 3.92 MIL/MM3 (4.00-5.30) Test 09/01/17 09:54 09/01/17 11:53 09/02/17 06:00 09/02/17 08:11 Blood Urea Nitrogen 19 MG/DL (7-18) Calcium Level 10.6 MG/DL (8.5-10.1) Phosphorus Level 2.3 MG/DL (2.5-4.9) Estimat Glomerular Filtration Rate 61 ML/MIN (>89) Activated Partial Thromboplast Time 49.0 SEC (24.3-30.1) Prothrombin Time 12.0 SEC (9.8-11.6) Imaging Last Impressions Abdomen/Pelvis CT 09/01/17 0000 Signed Impressions: Service Date/Time: August 22:16 - CONCLUSION: Constipation. Slight interval worsening in lung base aeration. No other acute CT findings in the abdomen or pelvis. Orlando Castillo MD Head CT 08/27/17 1700 Signed Impressions: Service Date/Time: Sunday, August 27, 2017 22:49 - CONCLUSION: No bleed or other acute complication. Chronic white matter changes are again noted. Orlando Mares MD Chest X-Ray 08/26/17 1124 Signed Impressions: Service Date/Time: Saturday, August 26, 2017 11:29 - CONCLUSION: No acute disease. Bassem Jones MD CT Angiography 08/26/17 1124 Signed Impressions: Service Date/Time: Saturday, August 26, 2017 12:34 - CONCLUSION: 1. Extensive bilateral pulmonary emboli throughout all pulmonary artery branches. 2. Cardiomegaly and coronary artery calcifications. 3. 7 mm noncalcified nodule within the right lower lobe which is indeterminate. 4. Nodular infiltrate/scarring within the left posterior lower lobe. 5. Degenerative changes and scoliosis of the thoracic spine. Tyler Chiu MD Lower Extremity Ultrasound 08/26/17 0000 Signed Impressions: Service Date/Time: Saturday, August 26, 2017 17:56 - CONCLUSION: 1. Small amount of infrapopliteal thrombus in the tibial veins as above. No deep venous thrombosis above the knee. Edward Gibbs MD PE at Discharge awake and alert, comfortable on 2 LNC- walk test done- passed anicteric no nuchal rigidity no rales or wheezes regular rhythm abdomen soft, nontender extremities no edema- no calf tenderness neuro exam- unremarkable Pt update on day of discharge good sats no chest pain or shortness of breath Hospital Course 86 years old female Massive PE- first episode + thrombus left popliteal vein no history of malignancies or recent trips did states that her legs felt heavy weeks ago started on heparin + coumadin overlap seen by Dr. Sunshine HOLLY with Eliquis CT of abdomen- negative. ambulate- gets sats with walk test History of TIA 1990s neurologically stable Hydrocodone/acetaminophen and morphine sulfate for pain management 08/27 CT brain -no acute abnormality Elevated troponin- secondary to PE Obstructive shock secondary to pulmonary embolism History of hypertension EKG revealed no significant ST-T changes. Cycle troponins every 6 hours 2. Downward trend[address] Dr. Jacobo - cardiology is following 08/28 Resumed daily medication atenolol 25 mg daily lisinopril 20 mg daily l Holding aspirin 81 mg daily after alteplase Bedside echo revealed intraseptal D bowling and RV strain. Formal 2-D echocardiogram pending Transition to Coumadin pharmacy dosing and a.m. 08/30 Atenolol increased to 50 mg daily Resp: GI: 08/27 1800 ADA diet IV pantoprazole for GI prophylaxis Docusate sodium/senna 1 tablet twice a day for bowel regimen : Urinary incontinence Continue oxybutynin 15 mill grams daily Accurate I's and O's Endo: Diet-controlled diabetes mellitus Accu-Cheks before meals/at bedtime with Novulin R to maintain euglycemia/low regimen Check TSH. - Elevated 3.9. Recommend recheck in 3-6 weeks. Continue current levothyroxine 88 g daily Renal: Acute kidney injury - resolving 08/27 urine electrolytes and eosinophils negative, FENA 0.15% IV heplocked Monitor urine output Accurate I's and O's Heme: Thrombocytopenia Right AT nonocclusive/left PT occlusive DVT Monitor daily. Coags within normal limits as well 08/30 transitioned to Coumadin, 08/21 INR 1.1 ID: Monitor for infection PT evaluate and treat. Begin out of bed to chair on 08/30 Prophylaxis - GI - pantoprazole Pt Condition on Discharge: Stable Discharge Disposition: Discharge to SNF Discharge Time: <= 30 minutes Discharge Instructions DIET: Follow Instructions for: Heart Healthy Diet Activities you can perform: Weight Bearing as Esme Follow up Referrals: Oncology/Hematology - 1 Week with Judd Delgado MD PCP Follow-up - 1 Week with Jam New Medications: Apixaban (Eliquis) 5 Mg Tab 5 MG PO BID for PE for 30 Days, #60 TAB 6 Refills Hydralazine HCl (Hydralazine HCl) 10 Mg Tablet 10 MG PO Q8HR for HTN for 30 Days, #90 TAB 1 tab po q 8 Changed Medications: Atenolol (Atenolol) 25 Mg Tab 50 MG PO DAILY for Blood Pressure Management for 30 Days, #60 TAB (Changed from : 25 MG; 30) Continued Medications: Levothyroxine (Levothyroxine) 88 Mcg Tab 88 MCG PO DAILY for Thyroid, #30 TAB 0 Refills Lisinopril (Lisinopril) 20 Mg Tab 20 MG PO DAILY, #30 TAB 0 Refills Oxybutynin ER 24 HR (Oxybutynin ER 24 HR) 15 Mg Tab 15 MG PO DAILY for Overactive Bladder, TAB 0 Refills Discontinued Medications: Aspirin (Aspirin) 81 Mg Chew 81 MG CHEW DAILY, TAB 0 Refills Brooke Walker MD Sep 02, 2017 15:27
[2017-09-02] MEDS: CHLORHEXIDINE GLUCONATE 2 % 1 PACK (2 CLOTHS) TOP SCH (21:37)
[2017-09-03 00:53] VITALS: BP 128/59; PULSE 72; RESP 20; TEMP 99.3; O2SAT 95
[2017-09-03 05:10] VITALS: BP 119/62; PULSE 68; RESP 20; TEMP 98.4; O2SAT 97
[2017-09-03] MEDS: LEVOTHYROXINE SODIUM 88 MCG TAB PO SCH (06:05)
[2017-09-03] MEDS: hydrALAZINE HCL 10 MG TAB PO SCH (06:05)
[2017-09-03 06:17] LABS: INTERNATIONAL NORMALIZED RATIO 1.1 RATIO; PROTHROMBIN TIME - PATIENT 11.3 SEC (9.8-11.6)
[2017-09-03 08:00] VITALS: BP 137/64; PULSE 73; PULSE 90; RESP 16; TEMP 98.2; O2SAT 97
[2017-09-03] MEDS: INSULIN NovoLIN REGULAR SUPPLEMENTAL SCALE SQ SCH ×2 (08:00→11:39)
[2017-09-03] MEDS: PANTOPRAZOLE SOD 40 MG DELAYED RELEASE TAB PO SCH (08:21)
[2017-09-03] MEDS: LISINOPRIL 20 MG TAB PO SCH (08:21)
[2017-09-03] MEDS: TOLTERODINE TARTRATE 4 MG CAP LA PO SCH (08:21)
[2017-09-03] MEDS: APIXABAN 5 MG TABLET PO SCH (08:21)
[2017-09-03] MEDS: DOCUSATE SODIUM 50 MG/SENNA 8.6 MG TAB PO SCH (08:21)
[2017-09-03] MEDS: SODIUM CHLORIDE 0.9% FLUSH 10 ML FLUSH IV FLUSH SCH (08:22)
[2017-09-03] MEDS: ATENOLOL 50 MG TAB PO SCH ×2 (08:34→10:22)
--- NOTE | 2017-09-03 09:10 | HHI.PR ---
Subjective Remarks feels great no complains very interactive no shortness of breath Objective Vitals Vital Signs Date Time Temp Pulse Resp B/P (MAP) Pulse Ox O2 Delivery O2 Flow Rate FiO2 09/03/17 08:00 98.2 73 16 137/64 (88) 97 09/03/17 05:10 98.4 68 20 119/62 (81) 97 09/03/17 00:53 99.3 72 20 128/59 (82) 95 09/02/17 21:08 98.7 67 18 135/64 (87) 95 09/02/17 16:00 98.5 66 18 111/56 (74) 97 09/02/17 12:43 96 09/02/17 12:00 98.9 63 18 138/65 (89) 94 I/O 09/02/17 09/02/17 09/02/17 09/03/17 09/03/17 09/03/17 07:00 15:00 23:00 07:00 15:00 23:00 # Voids 3 1 # Bowel Movements 0 1 Result Diagram: 09/01/17 0229 09/01/17 0954 Imaging Last Impressions Abdomen/Pelvis CT 09/01/17 0000 Signed Impressions: Service Date/Time: August 22:16 - CONCLUSION: Constipation. Slight interval worsening in lung base aeration. No other acute CT findings in the abdomen or pelvis. Orlando Castillo MD Head CT 08/27/17 1700 Signed Impressions: Service Date/Time: Sunday, August 27, 2017 22:49 - CONCLUSION: No bleed or other acute complication. Chronic white matter changes are again noted. Orlando Mares MD Chest X-Ray 08/26/17 1124 Signed Impressions: Service Date/Time: Saturday, August 26, 2017 11:29 - CONCLUSION: No acute disease. Bassem Jones MD CT Angiography 08/26/17 1124 Signed Impressions: Service Date/Time: Saturday, August 26, 2017 12:34 - CONCLUSION: 1. Extensive bilateral pulmonary emboli throughout all pulmonary artery branches. 2. Cardiomegaly and coronary artery calcifications. 3. 7 mm noncalcified nodule within the right lower lobe which is indeterminate. 4. Nodular infiltrate/scarring within the left posterior lower lobe. 5. Degenerative changes and scoliosis of the thoracic spine. Tyler Chiu MD Lower Extremity Ultrasound 08/26/17 0000 Signed Impressions: Service Date/Time: Saturday, August 26, 2017 17:56 - CONCLUSION: 1. Small amount of infrapopliteal thrombus in the tibial veins as above. No deep venous thrombosis above the knee. Edward Gibbs MD Objective Remarks awake and alert, comfortable on 2 LNC- walk test done- passed anicteric no nuchal rigidity no rales or wheezes regular rhythm abdomen soft, nontender extremities no edema- no calf tenderness neuro exam- unremarkable Procedures none A/P Problem List: (1) Acute massive pulmonary embolism ICD Code: I26.99 - Other pulmonary embolism without acute cor pulmonale (2) Urinary incontinence ICD Code: R32 - Unspecified urinary incontinence (3) Hypertension ICD Code: I10 - Essential (primary) hypertension (4) Hypothyroidism ICD Code: E03.9 - Hypothyroidism, unspecified (5) Elevated troponin ICD Code: R74.8 - Abnormal levels of other serum enzymes (6) Acute kidney injury ICD Code: N17.9 - Acute kidney failure, unspecified (7) Hyperglycemia ICD Code: R73.9 - Hyperglycemia, unspecified Status: Resolved (8) Hypotension ICD Code: I95.9 - Hypotension, unspecified Status: Resolved (9) History of TIA (transient ischemic attack) ICD Code: Z86.73 - Personal history of transient ischemic attack (TIA), and cerebral infarction without residual deficits (10) Diabetes mellitus ICD Code: E11.9 - Type 2 diabetes mellitus without complications Assessment and Plan 86 years old female Massive PE- first episode + thrombus left popliteal vein no history of malignancies or recent trips did states that her legs felt heavy weeks ago started on heparin + coumadin overlap seen by Dr. Sunshine HOLLY with Eliquis CT of abdomen- negative. ambulate- gets sats with walk test History of TIA 1990s neurologically stable Hydrocodone/acetaminophen and morphine sulfate for pain management 08/27 CT brain -no acute abnormality Elevated troponin- secondary to PE Obstructive shock secondary to pulmonary embolism History of hypertension EKG revealed no significant ST-T changes. Cycle troponins every [address] Jacobo - cardiology is following 08/28 Resumed daily medication atenolol 25 mg daily lisinopril 20 mg daily l Holding aspirin 81 mg daily after alteplase Bedside echo revealed intraseptal D bowling and RV strain. Formal 2-D echocardiogram pending Transition to Coumadin pharmacy dosing and a.m. 08/30 Atenolol increased to 50 mg daily Resp: GI: 08/27 1800 ADA diet IV pantoprazole for GI prophylaxis Docusate sodium/senna 1 tablet twice a day for bowel regimen : Urinary incontinence Continue oxybutynin 15 mill grams daily Accurate I's and O's Endo: Diet-controlled diabetes mellitus Accu-Cheks before meals/at bedtime with Novulin R to maintain euglycemia/low regimen Check TSH. - Elevated 3.9. Recommend recheck in 3-6 weeks. Continue current levothyroxine 88 g daily Renal: Acute kidney injury - resolving 08/27 urine electrolytes and eosinophils negative, FENA 0.15% IV heplocked Monitor urine output Accurate I's and O's Heme: Thrombocytopenia Right AT nonocclusive/left PT occlusive DVT Monitor daily. Coags within normal limits as well 08/30 transitioned to Coumadin, 08/21 INR 1.1 ID: Monitor for infection MSK: [facility] roday to SNF- awaiting [facility] authorization Problem Qualifiers (1) Urinary incontinence: Qualified Codes: R32 - Unspecified urinary incontinence (2) Hypertension: Qualified Codes: I10 - Essential (primary) hypertension (3) Hypothyroidism: Qualified Codes: E03.9 - Hypothyroidism, unspecified (4) Hypotension: Qualified Codes: I95.89 - Other hypotension (5) Diabetes mellitus: Qualified Codes: E11.8 - Type 2 diabetes mellitus with unspecified complications Brooke Walker MD Sep 03, 2017 09:10
== END 2017-09-03 12:11 | DRG 176 ==
LOC: NEPE 10:58 → NEDA 14:10 → HIMN 15:20 → N05B 08-31 17:17
PROVIDERS: ADMIT Internal Medicine Critical Care Medicine; ATTEND Internal Medicine
DX: I26.99 Other pulmonary embolism without acute cor pulmonale (principal); R57.9 Shock, unspecified; N17.9 Acute kidney failure, unspecified; I95.9 Hypotension, unspecified; E11.65 Type 2 diabetes mellitus with hyperglycemia; D69.6 Thrombocytopenia, unspecified; I82.443 Acute embolism and thrombosis of tibial vein, bilateral; E83.52 Hypercalcemia; R32 Unspecified urinary incontinence; R09.02 Hypoxemia; E03.9 Hypothyroidism, unspecified; E78.5 Hyperlipidemia, unspecified; I10 Essential (primary) hypertension; R74.8 Abnormal levels of other serum enzymes; Z86.73 Personal history of transient ischemic attack (TIA), and cerebral infarction without residual deficits; Z79.82 Long term (current) use of aspirin; Z87.891 Personal history of nicotine dependence; Z88.8 Allergy status to other drugs, medicaments and biological substances
CPT/HCPCS: 70450; 71010; 71275; 74176; 80048; 80053; 81001; 82550; 82570; 82948; 83036; 83605; 83735; 83880; 84100; 84300; 84443; 84484; 85025; 85027; 85610; 85730; 87205; 87641; 93005; 93306; 93970; 94150; 94620; 94640; 94664; 96361; 96365; 96375; C9113; J0360; J1644; J2997; J7030; J7040; Q9963; Q9967